=== PATIENT | female | born 1955 | race Caucasian/White ===

== ENCOUNTER → 2017-08-14 | Emergency (ER) | payer OTHER ==
[~2017-08-14] VITALS: Ht 157.5 cm; Wt 88.9 kg
[~2017-08-14] MED LIST: ASPIR 8181 MG; CALCIUM500 M1 PO; FORTAMET1000 MG PO; GLIPIZIDE5 MG PO; LISINOPRIL5 MG; METFORMIN HCL1000 MG PO; NEURONTIN300 MG PO; OMEPRAZOLE20 MG PO; PERCOCET 5-3251 EACH PO; SYNTHROID25 MCG; VITAMIN B122500 MCG PO; VITAMIN D400 UNIT PO
--- NOTE | 2017-08-14 19:31 | EKG ---
[facility] [address] [facility] [place] [address] Signed Poor data quality, interpretation may be adversely affected Normal sinus rhythm Abnormal ECG No previous ECGs available Confirmed by ANDREI SEO MD ([id number]) on 08/14/2017 7:31:15 PM Electronically Signed By: ANDREI SEO MD 08/14/171930 PATIENT NAME: LORENA SHEA Electrocardiogram DATE OF : 57 PHYSICIAN: ANDREI SEO MD REPORT #: [id number] REPORT IS CONFIDENTIAL AND NOT TO BE RELEASED WITHOUT AUTHORIZATION
== END ==
LOC: ED 17:49
DX: R07.2 Precordial pain (principal); R10.9 Unspecified abdominal pain; I10 Essential (primary) hypertension; E11.9 Type 2 diabetes mellitus without complications; Z88.6 Allergy status to analgesic agent; Z79.899 Other long term (current) drug therapy; Z79.84 Long term (current) use of oral hypoglycemic drugs
CPT/HCPCS: 71020; 76705; 80053; 83690; 84484; 85025; 93005; 93010; 96374; 99284; J2405

== ENCOUNTER 2017-12-15 06:59 | Day surgery (SDC) | payer OTHER ==
[~2017-12-15] VITALS: Ht 157.5 cm; Wt 85.7 kg
[~2017-12-15 06:59] MED LIST changes: +RANITIDINE HCL150 MG PO; +SIMETHICONE80 MG PO; -SYNTHROID25 MCG; +SYNTHROID25 MCG PO
--- NOTE | 2017-12-15 10:37 | NUR ---
12/15/17 1037 Bella Jessica PT IN AT 0846, REPORT FROM AMMON, PT VITALS STABLE.
--- NOTE | 2017-12-16 13:58 | OR ---
[facility] [address] [place], [place] [address] Signed DATE OF OPERATION: 12/15/2017 SURGEON: Nawaf Haddad MD PREOPERATIVE DIAGNOSES: 1. Hiatal hernia. 2. Gastroesophageal reflux disease. 3. Screening. 4. Constipation. POSTOPERATIVE DIAGNOSES: 1. Mild distal gastritis. 2. Moderate quezada diverticulosis. PROCEDURES: 1. EGD with CLOtest and biopsies of the antrum. 2. Colonoscopy without biopsy. ESTIMATED BLOOD LOSS: None. INDICATIONS: Kita is a 62-year-old female, who was asked to see me for upper and lower endoscopy. She has no lower GI complaints. She has never had a previous colonoscopy. There is no family history of colon cancer or polyps. She describes a hiatal hernia and acid reflux starting around 2009. She thinks the omeprazole helps, but does not completely alleviated her symptoms. She had a CT scan of her chest done and apparently there was a left pulmonary nodule. She is going to [facility] in December 2017 and have that nodule looked at. In the meantime, she plans on seeing a punch molder over the [facility]. In my office, I gave her pamphlets on both upper and lower endoscopy. We looked at those together along with the risks including, but not limited to, gas bloating, crampy abdominal pain, bleeding, perforation, requiring surgery, and missed diagnosis. We also discussed the need for IV conscious sedation. She had expressed understanding and wished to proceed. PROCEDURE NOTE: Kita was taken into our endoscopy suite and placed in the supine semi-recumbent position. The posterior oropharynx was anesthetized with Hurricaine spray. A bite block was utilized for the case. She was given divided doses of 7 mg of Versed and 150 mcg of fentanyl to cover both cases. The adult gastroscope was introduced and advanced Electronically Signed By: NAWAF HADDAD MD 12/16/17 6810 PATIENT NAME: KITA SHEA OPERATIVE REPORT DATE OF : 57 PHYSICIAN: NAWAF HADDAD MD REPORT #: [id number] REPORT IS CONFIDENTIAL AND NOT TO BE RELEASED WITHOUT AUTHORIZATION [facility] [address] [place], [place] [address] [address] out into the third portion of the duodenum under direct visualization of camera without difficulty. The duodenum and pyloric channel were unremarkable. She had very minimal erythema in the distal half of her stomach. We took biopsies from the antrum for CLOtest as well as pathologic review. There were no ulcerations, no gastric or esophageal varices. The scope was then retroflexed and I really did not see an obvious hiatal hernia. In fact, her GE junction looks rather good. The scope was withdrawn up through the area of the GE junction, which was compliant without stricture. The Z-line remains intact. There was no Christy's mucosa. There was no distal esophagitis. The middle and upper esophagus were unremarkable. After this, the gas was suctioned out and the gastroscope removed. Kita tolerated the procedure quite well. Kita was then rotated into the left lateral decubitus position. She was maintained on IV sedation with Versed and fentanyl. A digital rectal exam was performed and this was unremarkable. The adult colonoscope was introduced and advanced all around into the cecum under direct visualization of camera without difficulty. Her prep was good. The scope was then slowly withdrawn. She has moderate diverticulosis throughout the colon. They were moderate in size, moderate in number and scattered about. We saw no polyps. Once in the rectum, the scope had been retroflexed and there was no additional pathology noted above the anal canal. After this, the gas was suctioned out and the colonoscope removed. Kita tolerated the procedure quite well. RECOMMENDATIONS: I will see Kita back in my office in 7 to 14 days to review her results. She might consider a barium swallow to evaluate for hiatal hernia and acid reflux. If she wanted to pursue surgical options, [facility] [place] [facility] would be a good place. Nawaf Haddad MD [facility]/MODL /[id number] cc: Cristina Thomas Electronically Signed By: NAWAF HADDAD MD 12/16/17 1358 PATIENT NAME: KITA SHAE OPERATIVE REPORT DATE OF : 57 PHYSICIAN: NAWAF HADDAD MD REPORT #: [id number] REPORT IS CONFIDENTIAL AND NOT TO BE RELEASED WITHOUT AUTHORIZATION
== END 2017-12-15 09:24 | disposition home or self-care (01) ==
LOC: OPS 06:59 → DS 06:59 → OPS 08:15
PROVIDERS: Colon & Rectal Surgery
PROC: 0DJD8ZZ Inspection of Lower Intestinal Tract, Via Natural or Artificial Opening Endoscopic (ICD-10-PCS; principal; 2017-12-15 08:15)
PROC: 0DB68ZX Excision of Stomach, Via Natural or Artificial Opening Endoscopic, Diagnostic (ICD-10-PCS; 2017-12-15 08:15)
DX: K57.30 Diverticulosis of large intestine without perforation or abscess without bleeding (principal); K31.9 Disease of stomach and duodenum, unspecified; K21.9 Gastro-esophageal reflux disease without esophagitis; K44.9 Diaphragmatic hernia without obstruction or gangrene; Z87.891 Personal history of nicotine dependence; Z88.5 Allergy status to narcotic agent; Z88.8 Allergy status to other drugs, medicaments and biological substances; Z98.890 Other specified postprocedural states; Z79.899 Other long term (current) drug therapy
CPT/HCPCS: 86677; 99153; G0500; J2250; J3010; J7120

== ENCOUNTER 2022-09-08 14:12 | Emergency (ER) | payer MEDICARE, OTHER ==
[~2022-09-08] VITALS: Ht 157.5 cm; Wt 85.7 kg
[~2022-09-08 14:12] MED LIST changes: +JANUVIA100 MG PO; +LIPITOR10 MG PO; +LOSARTAN POTASS25 MG PO; +TRAMADOL HCL50 MG PO
--- OUTSIDE RECORDS SUMMARY | 2022-09-08 14:14 | XMS ---
PreManage Notification: LORENA SHEA Security Seaman Events No recent Security Events currently on file CRITERIA MET - [facility] - 2 Visits in 30 Days - [facility] CARE PROVIDERS Gina Tripp FILENET ADMIN Nurse Practitioner: Family Current PHONE: Unknown Shannon has no Care Guidelines for this patient. E.Gavin VISIT COUNT (12 MO.) [address] [place] [address] Lakshmi Monzon [address] [place] [address] TOTAL 2 NOTE: Visits indicate total known visits. ED/UCC VISIT TRACKING (12 MO.) 09/08/2022 14:12 ALETHEA Campos TYPE: Emergency COMPLAINT: - BLOOD PRESSURE PROBLEM 08/25/2022 05:30 [facility]: Emergency DIAGNOSES: - Fever, unspecified - Sepsis, unspecified organism - Cellulitis of left finger - Other pancytopenia - Neutropenia, unspecified - Other specified diseases of anus and rectum - Fever presenting with conditions classified elsewhere - Unspecified injury of left wrist, hand and finger(s), initial encounter - post opp issue/ fever INPATIENT VISIT TRACKING (12 MO.) 08/25/2022 05:30 [facility] Na CHRISTIANSON TYPE: Medical Surgical DIAGNOSES: - Other pancytopenia - Neutropenia, unspecified - Fever presenting with conditions classified elsewhere - Other specified diseases of anus and rectum - Unspecified injury of left wrist, hand and finger(s), initial encounter - Sepsis, unspecified organism - Cellulitis of left finger [email or web address]
--- NOTE | 2022-09-08 20:51 | EKG ---
[facility] [address] [facility] [place] [address] Signed Normal sinus rhythm Normal ECG When compared with ECG of 09-MAY-2020 15:58, premature atrial complexes are no longer present Questionable change in QRS axis Nonspecific T wave abnormality now evident in Inferior leads T wave amplitude has decreased in Lateral leads Confirmed by MARI ARCHULETA MD ([id number]) on 09/08/2022 8:51:47 PM Electronically Signed By: MARI ARCHULETA MD 09/08/222050 PATIENT NAME: LORENA SHEA Electrocardiogram DATE OF : 57 PHYSICIAN: MARI ARCHULETA MD REPORT #: [id number] REPORT IS CONFIDENTIAL AND NOT TO BE RELEASED WITHOUT AUTHORIZATION
== END 2022-09-08 16:45 | disposition home or self-care (01) ==
LOC: ED 14:12
DX: E86.0 Dehydration (principal); D61.810 Antineoplastic chemotherapy induced pancytopenia; T45.1X5A Adverse effect of antineoplastic and immunosuppressive drugs, initial encounter; F17.200 Nicotine dependence, unspecified, uncomplicated; E11.9 Type 2 diabetes mellitus without complications; Z88.6 Allergy status to analgesic agent; Z79.899 Other long term (current) drug therapy
CPT/HCPCS: 36415; 80053; 85025; 85060; 93005; 93010; 96374; 99284-25; J7030

== ENCOUNTER 2022-12-16 10:14 | Inpatient (IN) | payer MEDICARE, OTHER ==
[~2022-12-16] VITALS: Ht 157.5 cm; Wt 72.2 kg
[~2022-12-16 10:14] MED LIST changes: +CEFDINIR300 MG PO
--- OUTSIDE RECORDS SUMMARY | 2022-12-16 10:16 | XMS ---
PreManage Notification: LORENA SHEA Security Grocery Clerk Marking Events No recent Security Events currently on file CRITERIA MET - 6 ED Visits in 6 Months - [facility] - 2 Visits in 30 Days - [facility] CARE PROVIDERS Gina Tripp HOTEL CONCIERGE Nurse Practitioner: Current PHONE: Unknown Shannon has no Care Guidelines for this patient. E.Roxanne. VISIT COUNT (12 MO.) 1 [facility] [address] TOTAL 6 NOTE: Visits indicate total known visits. ED/UCC VISIT TRACKING (12 MO.) 12/16/2022 10:15 ALETHEA Zafar [place] TYPE: Emergency COMPLAINT: - POSS REACTION TO TREATMENT, AMS 12/04/2022 13:03 ALETHEA Zafar [place] TYPE: Emergency COMPLAINT: - WEAKNESS DIAGNOSES: - Other symptoms and signs involving the musculoskeletal system - Low back pain, unspecified - Allergy status to penicillin - Urinary tract infection, site not specified - Nicotine dependence, unspecified, uncomplicated - salvage determiner (current) use of oral hypoglycemic drugs - Allergy status to analgesic agent - Weakness - Other terminal makeup operator (current) drug therapy - Type 2 diabetes mellitus without complications 11/23/2022 15:18 [facility] [place] TYPE: Emergency COMPLAINT: - WEAKNESS FOLLOWING CHEMO TX DIAGNOSES: - WEAKNESS FOLLOWING CHEMO TX [facility]22 [facility] DIAGNOSES: - Malignant neoplasm of unspecified site of right female breast - Dizziness and giddiness - Neutropenia, unspecified - Melena - Anemia, unspecified - brought by cancer center - Weakness 09/08/2022 14:12 ALETHEA Campos TYPE: Emergency COMPLAINT: - BLOOD PRESSURE PROBLEM DIAGNOSES: - Adverse effect of antineoplastic and immunosuppressive drugs, initial encounter - Allergy status to analgesic agent - Type 2 diabetes mellitus without complications - Other terminal makeup operator (current) drug therapy - Antineoplastic chemotherapy induced pancytopenia - Dehydration - Nicotine dependence, unspecified, uncomplicated [facility] DIAGNOSES: - Neutropenia, unspecified - Other specified diseases of anus and rectum - Fever presenting with conditions classified elsewhere - Unspecified injury of left wrist, hand and finger(s), initial encounter - post opp issue/ fever - Fever, unspecified - Sepsis, unspecified organism - Cellulitis of left finger - Other pancytopenia INPATIENT VISIT TRACKING (12 MO.) 08/[facility]2022 [facility]: Medical Surgical DIAGNOSES: - Other specified diseases of anus and rectum - Unspecified injury of left wrist, hand and finger(s), initial encounter - Sepsis, unspecified organism - Cellulitis of left finger - Other pancytopenia - Neutropenia, unspecified - Fever presenting with conditions classified elsewhere [id number]
[2022-12-16] MEDS ORDERED: METFORMIN HCL500 M1 PO (13:53)
--- NOTE | 2022-12-16 14:15 | NUR ---
PT ARRIVED TO ROOM 123 VIA STRETCHER. PT WAS ABLE TO MOVE SELF TO THE BED. DISCUSSED USE OF CALL LIGHT, IN REACH. BED ALARM ON.
[2022-12-16] MEDS ORDERED: PREDNISONE5 MG PO (14:57)
[2022-12-16] MEDS ORDERED: ONDANSETRON ODT8 MG PO (14:57)
[2022-12-16] MEDS ORDERED: LEVOTHYROXINE100 MCG PO (14:58)
[2022-12-16] MEDS ORDERED: ATORVASTATIN CA20 MG PO (14:59)
--- NOTE | 2022-12-16 15:05 | NUR ---
DURING ASSESSMENT PT IS ABLE TO SAY "YES" WHEN ASKED IF SHE KNOWS WHERE SHE IS, BUT UNABLE TO STATE WHERE. WHEN ASKING QUESTIONS PT REPLIES "OKAY". LIDOCAINE PATCH APPLIED TO LOWER (PER EMAR). PT WAS ABLE TO VERBILZE HER BACK WAS HURTING. SKIN ASSESSMENT COMPLETE WITH KLARISSA FLOYD. SKIN IS INTACT WITH NO SIGNS OF SKIN BREAKDOWN. PT WAS NAUSEOUS BUT NO EMESIS. SISTER AT BEDSIDE. CALL LIGHT WITHIN REACH. BED ALARM ON FOR SAFETY.
--- NOTE | 2022-12-16 16:52 | NUR ---
PT COMPLAINING OF BACK PAIN. WARM PACK PROVIDED, PT SAYS "FEELS MUCH BETTER". PT IS ABLE TO VERBALIZE WHERE SHE IS AT AND KNOWS THE PRESIDENT. PT RESTING IN BED, CALL LIGHT WITHIN REACH, BED ALARM ON
--- NOTE | 2022-12-16 18:07 | NUR ---
PT CONTINUES TO COMPLAIN ABOUT BACK PAIN. LIDOCAIN PATCH REMAINS IN PLACE. HEAT PAD IN PLACE. PRN PAIN MEDICATION ADMINISTERED (PER EMAR). ROOMMATE AT BEDSIDE. CALL LIGHT URIELITHIN REACH. BED ALARM ON.
--- NOTE | 2022-12-16 19:05 | NUR ---
RECEIVED REPORT FROM DELMIS RN. PT RESTING IN BED, REPORTS NEED TO USE BC. THIS RN AND DELMIS RN ASSISTED PT W/2PA TO BC, URINE VOID RECORDED, MARQUITA CARE PERFORMED, NEW DEPENDS IN PLACE. PT NOW BACK IN BED, CALL LIGHT WITHIN REACH, NO FURTHER NEEDS AT THIS TIME.
--- NOTE | 2022-12-16 20:30 | NUR ---
IN PT ROOM FOR RELATIONSHIP CONSULTANT, VS, I/O'S, AND ASSESSMENT. PT IS RESTING IN BED ALERT AND ORIENTED TO ALL BUT DATE/TIME. PT REPORTS 10/10 PAIN IN BACK, LIDOCAINE PATCH IN PLACE AT THIS TIME, BOOSTED IN BED. MD CALLED REGARDING PAIN, NEW ORDERS IN PLACE. PORT IS ACCESSED, BRISK BLOOD RETURN, FLUSHES W/EASE, NO SIGNS OF REDNESS/OR REPORTS OF PAIN. CONTINUOUS FLUIDS INFUSING DIRECTED. PRN MORPHINE GIVEN D/T BACK PAIN (SEE EMAR). LUNG SOUNDS ARE DIM THROUGHOUT, PT DOES NOT FOLLOW DIRECTIONS TO TAKE DEEP BREATHS. PULSES PRESENT THROUGHOUT, BOWEL TONES ACTIVE X4. PT REPORTS NO NAUSEA, DIZZINESS, N/T, SOB AT THIS TIME. SKIN IS PINK/WARM/DRY, NO SIGNS OF BREAKDOWN AT THIS TIME. CALL LIGHT WITHIN REACH, BED ALARM ON, NO FURTHER NEEDS AT THIS TIME.
--- NOTE | 2022-12-16 21:20 | NUR ---
PT RESTING IN BED A&O X4. PT REPORTS PAIN IS 2/10 AT THIS TIME, NO NEED FOR PRN MEDS PER PT D/T TOLERABLE. PT REPORTS NO NAUSEA, N/T, DIZZINESS, SOB AT THIS TIME. IV SITE WNL, IV ABX INFUSING AT THIS TIME. LUNG SOUNDS ARE CLEAR THROUGHOUT, PULSES PRESENT THROUGHOUT, BOWEL TONES ARE HYPOACTIVE X4. VSS. PT USED IS X3 W/THIS RN IN ROOM REACHING 2200. KERLEX AND JUANI WRAP REWRAPPED OVER WOUND, REDNESS HAS RECEEDED FROM MARKED LINE, ALLEVYNS ARE C/D/I. LEG IS ELEVATED ON PILLOW AT THIS TIME. CALL LIGHT WITHIN REACH, NO FURTHER NEEDS AT THIS TIME. ICE WATER PROVIDED.
--- NOTE | 2022-12-16 22:10 | NUR ---
PT RESTING W/EYES CLOSED. RESPIRATIONS ARE EVEN AND UNLABORED, NO SIGNS OF DISTRESS. CALL LIGHT WITHIN REACH. IV FLUIDS INFUSING DIRECTED. BED ALARM ON FOR SAFETY.
--- NOTE | 2022-12-16 23:45 | NUR ---
PT LAYING ON BACK W/EYES CLOSED. RESPIRATIONS ARE EVEN AND UNLABORED, NO SIGNS OF DISTRESS. IV FLUIDS INFUSING DIRECTED, CALL LIGHT WITHIN REACH, BED ALARM ON FOR SAFETY.
--- NOTE | 2022-12-17 02:10 | NUR ---
IN PT ROOM FOR VS. PT REPORTS NO PAIN AT THIS TIME AND IS ORIENTED TO ALL BUT DATE/TIME. UPPER EXTR. TREMORS STILL ACTIVE, PT STATES SHE IS NOT SURE WHERE THEY CAME FROM, NOT PRESENT DURING SLEEP. NO ACUTE CHANGES FROM PREVIOUS ASSESSMENT. PT REPORTS NO NAUSEA, DIZZINESS, SOB, N/T AT THIS TIME. PORT IS WNL, IV FLUIDS INFUSING DIRECTED. CALL LIGHT WITHIN REACH, BED ALARM ON, NO FURTHER NEEDS AT THIS TIME.
--- NOTE | 2022-12-17 03:55 | NUR ---
IN PT ROOM D/T PT REPORT BACK PAIN, HEAT PACK PROVIDED AND PT STATES INSTANT RELIEF AT THIS TIME. TV REMOTE PROVIDED TO PT. CALL LIGHT WITHIN REACH, PT REPORTS NO FURTHER NEEDS AT THIS TIME.
--- NOTE | 2022-12-17 05:35 | NUR ---
PT IN BED RESTING WATCHING TV. PT REPORTS NO PAIN, N/T, DIZZINESS, SOB AT THIS TIME. PT REPORTS MILD NAUSEA, RAISED HOB AND PT STATES SHE DOES NOT FEEL NAUSEOUS ANYMORE AT THIS TIME, PT DECLINED NEED FOR ZOFRAN. LAB IN ROOM, BLOOD DRAW VIA PORT PER PROTOCAL. CALL LIGHT WITHIN REACH, NO FURTHER NEEDS AT THIS TIME.
--- NOTE | 2022-12-17 06:50 | NUR ---
IN PT ROOM FOR REDRAW OF LABS VIA PORT. PORT SITE WNL, BRISK BLOOD RETURN. REDRAW PER MD ORDER D/T LOW CRITICAL MAG VALUED LAB. PROTOCAL FOLLOWED W/LAB DRAW AND FLUSH. PT REPORTS NO PAIN AT THIS TIME. CALL LIGHT WITHIN REACH, SALINE LOCKED, NO FURTHER NEEDS AT THIS TIME. BED ALARM ON FOR SAFETY.
--- NOTE | 2022-12-17 07:18 | NUR ---
REPORT RECEIVED FROM KLARISSA PEARSON. PT RESTING IN BED ON BACK, SEMI KANG POSITION. PT AWAKE AND ALERT AND TELLING STORIES FROM HER PAST CHEMO TREATMENTS. PT DENIES PAIN AND NAUSEA AT THIS TIME. HEAD OF BED AT 15 DEGREES. PT DENIES ADDITIONAL REQUESTS OR COMPLAINTS. CALL LIGHT WITHIN REACH. BED RAILS UP.
--- NOTE | 2022-12-17 07:32 | NUR ---
MORNING ASSESSMENT AND MEDICATION DUE. PT AWAKE AND ALERT, WATCHING TV. PT TELLING LONG STORIES ABOUT HER EXPERIENCES WITH CHEMOTHERAPY. STAND BY ASSIST WITH FWW UP TO CHAIR. PORT FLUSHED, BRISK BLOOD RETURN NOTED. PORT HEAPRIN LOCKED PER PROTOCOL. PT DENIES PAIN AND NAUSEA AT THIS TIME. BLOOD SUGAR TAKEN AND FOUND TO BE 69. 4 OZ ORANGE JUCIE AND JELLO PROVIDED PER PT REQUEST. PT TAKES ONE SIP OF ORANGE JUICE AND ONE BITE OF JELLO AND REPORTS "IT'S WAY TO SWEET!" PT BEGINS DRY HEAVING. PT ALSO REPORTS DIZZINESS AT TIMES. HEAPRIN REMOVED FROM PORT A CATH LINE. ZOFRAN GIVEN. MAGNEISUM INFUSION STARTED. BLOOD SUGAR REASSESSED AND FOUND TO BE 83. PT IS ABLE TO FINISH HER ORANGE JUICE BUT STATES SHE DOES NOT WANT ADDITIONAL JUICE BUT AGREES TO CRANBERRY JUICE, 4 OZ PROVIDED. PT ALERAT AND OREINTED TO ALL BUT EXACT TIME AND YEAR. PT COOPEARTIVE, FOLLOWS DIRECTIONS AND IS INTERACTING WITH CARES APPROPRIATLY. PT FORGETFUL AT TIMES BUT NO LONGER APPEARS CONFUSED. PT RECALLS EVENTS APPROPIRATLY. LUNG SOUNDS CLEAR. HEART TONES REGULAR WITH OCCATIONAL MISSED BEAT HEARD. ABDOMEN SOFT AND NON TENDER. BOWEL TONES ACTIVE. PT REMAINS UP TO CHAIR. BLOOD SUGAR REASSESED, NOW 97. PT NOW REPORTS NAUSEA AND DIZZINESS HAVE RESOLVED. NO ADDITIONAL NEEDS AT THIS TIME. CALL LIGHT WITHIN REACH. PT DEMONSTRATES USE OF CALL LIGHT. BREAKFAST DELIVERED TO PT. PT FEEDING SELF BREAKFAST.
[2022-12-17] MEDS ORDERED: FAMOTIDINE20 MG PO (09:08)
[2022-12-17] MEDS ORDERED: OZEMPIC1 MG/0.71 SUB-Q (09:09)
--- NOTE | 2022-12-17 09:16 | NUR ---
MED REC COMPLETE
--- NOTE | 2022-12-17 09:35 | NUR ---
THIS RN TO ROOM TO CHECK ON PT. PT REMAINS UP TO CHAIR. PT REPORTS 2/10 LOWER BACK PAIN AND REPORTS ABDOMINAL DISCOMFORT. NOTED THAT PT RECENTLY HAD A LARGE SEMI LIQUID SOFT BROWN BOWEL MOVEMENT. PT REPORTS HEART BURN. MESSAGE SENT TO MD REQUESTING PRN MEDICATION. IV FLUIDS STARTED. PT DENIES ADDITONAL REQUSTS OR COMPLAINTS. CALL LIGHT WITHIN REACH.
--- NOTE | 2022-12-17 10:30 | NUR ---
Attempted to see pt, she is working with PT.
--- NOTE | 2022-12-17 10:32 | NUR ---
THIS RN TO ROOM TO CHECK ON PT. PT FINISHING WORKING WITH OCCUPATIONAL THEARPY. PT REPORTS 8/10 LOWER BACK PAIN. LIDOCANE PATCH APPLIED. PT BACK TOB BED WITH 1 PERSON ASSIST AND FWW. WARM BLANKETS PROVIDED. NO ADDIITONAL REQUESTS OR COMPLAINTS. CALL LIGHT WITHIN REACH. BED RAILS UP.
--- NOTE | 2022-12-17 10:49 | NUR ---
NURSE GOT PATIENT UP TO THE CHAIR THIS MORNING. CHANGED HER BED LINENS. AFTER SHE WAS DONE WITH BREAKFAST SHE NEEDED TO USE THE BEDSIDE COMMODE. SHE TRANFERED FINE BACK TO HER CHAIR.
--- NOTE | 2022-12-17 10:50 | NUR ---
Spoke with pt and she lives in [place]. She has a roommate and he is not her cg. He is a bulk truck driver and is gone. She has DME, she is concerned as she has had falls at home. Sister, Nannette, lives in [facility] and assist her with transport and other needs. Nannette [phone]. Pt is agreeable to SNF placement for short term rehab. She would like to be able to go home. Chart faxed to [facility]. I called and spoke with her sister and she wants to help, states she does not know where to start. She would like pt to have rehab. Let her know chart has been sent to [facility]. I also suggested they begin by completing POA papers. She is calling her other siblings to check for other help.
--- NOTE | 2022-12-17 11:28 | NUR ---
Call from azucena from [facility] and they wouldl like chart faxed to their Dr. Dr. Roy, pt is under their care.
--- NOTE | 2022-12-17 11:51 | NUR ---
THIS RN TO ROOM WITH MD FOR ROUNDS. PT TELLING STORIES AND ANSWERING QUESTIONS APPROPRATLY. PT EPORTS 8 LOWER BACK PAIN AND STATES "BUT IT'S JUST IN THAT ONE CORNDER. LIDOCANE PATCH FOUND ROLLED UP IN BED. REAPPLIED. PT UP TO CHAIR WITH 1 PERSON ASSIST AND FWW. PT DENIES NAUSEA. LUNCH DELIVERED TO PT. PT DENIES ADDITIONAL NEEDS AT THIS TIME. CALL LIGHT WITHIN REACH.
--- NOTE | 2022-12-17 12:26 | NUR ---
FR RUSSELL WITH CHECK WITH M/S RN TO SEE IF PT WOULD LIKE VISIT
--- NOTE | 2022-12-17 12:30 | NUR ---
PT CALL LIGHT ON PT REPORTS NASUEA WITH FOOD FOR LUNCH. CONSULTED AND STATES TO GIVE ZOFRAN EARLY. NEW ORDERS FOR PANTOPRAZOLE ALSO PLACED. SEE MAR FOR MEDICATION GIVEN. FOOD TRAY REMOVED. PT DENIES ADDITIONAL FOOD. NAUSEA QUICKLY RESOLVES AFTER ZOFRAN ADMINISTRATION. PT CRYING RELATED TO 8/10 BACK PAIN. SEE MAR FOR MEDICATION GIVEN. 1 PERSON ASSIST WITH FWW UP TO BEDSIDE COMODE. PT VOIDS WITHOUT ISSUE. MARQUITA CARE DONE. STAND BY ASSIST WITH FWW BACK TO BED. PT POSITIONED FOR COMFORT WITH HEAD OF BED AT 21 DEGREES. NO ADDITIONAL REQUESTS OR COMPLAINTS. CALL LIGHT WITHIN REACH. BED RAILS UP.
--- NOTE | 2022-12-17 13:27 | NUR ---
AFTERNOON ASSESSMENT AND MEDICATION DUE. PT RESTING IN BED IN SUPINE POSITION. PT REPORTS BACK PAIN "IS BETTER: NOW AT 3/10. PT DENIES PAIN WITH PRESSURE TO FLANKS. PT DENIES NAUSEA. PT ORIENTED TO ALL BUT EXACT TIME AT THIS TIME. PT STATES "I JUST CAN'T SEE WITHOUT MY GLASSES." PT HAS TROUBLE FINDING EXACT WORD SHE WANTS AT TIMES. PT IS ABLE TO TALK AROUND WORDS UNTIL SHE REMEMBERS WHAT SHE WANTS TO SAY. LUNG SOUNDS CLEAR. HEART TONES REGULAR. ABDOMEN SOFT AND NON TENDER, BOWEL TONES ACTIVE. PT ASSISTED WITH REPOSITIONING TO RIGHT SIDE, SUPPORTED WITH PILLOWS. PT REPORTS SHE IS MORE COMFROTABLE ON THIS SIDE AND WANTS TO TAKE A NAP. NO ADDITIONAL NEEDS AT THIS TIME. CALL LIGHT WIHTIN REACH. BED RAILS UP.
--- NOTE | 2022-12-17 14:28 | NUR ---
THIS RN TO ROOM TO CHECK ON PT. PT RESTING WITH EYES CLOSED, RESPIRATIONS EVEN AND UNLABORED. HEAD OF BED AT 20 DEGREES. PT RESTING ON RIGHT SIDE. BED RAILS UP. CALL LIGHT WITHIN REACH. PT ALLOWED TO REST.
--- NOTE | 2022-12-17 14:30 | NUR ---
WHEN I WENT BY AND CHECKED ON PATIENT. CURTAIN WAS OPEN. PATIENT WAS SLEEPING.
--- NOTE | 2022-12-17 15:19 | NUR ---
THIS RN TO ROOM TO CHECK ON PT. PT RESTING IN BED WITH PILLOW UNDER RIGHT SIDE. PT REPORTS 8/10 BACK PAIN AND REQUESTS PAIN MEDICAITON AND REPOSITIONING. PT REPOSITIONED TO RIGHT SIDE, WILL PILLOW UNDER LEFT SIDE. PT REPORTS THIS HELPS HER PAIN. SEE MAR FOR MEDICATION GIVEN. PT DENIES NAUSEA. NO ADDITIONAL REQUESTS OR COMPLAINTS. CALL LIGHT WITHIN REACH. BED RAILS UP.
--- NOTE | 2022-12-17 15:56 | NUR ---
PT HERE FOR IFRAH AND HYPERCALCEMIA. PT UP WITH 1 PERSON ASSIST AND FWW TO CHAIR AND WITH PHYSICAL THERAPY THIS SHIFT. PT HAS VERY POOR APPITITE FOR 60G CARB DIET THIS SHIFT. PRN NAUSEA MEDICATION GIVEN. SHAKE CUTTER CONSULTATION PLACED. PT ADVANCED TO REGULAR DIET, CONTINUES TO HAVE MINIMAL APPITITE. HYPOGLYCEMIA NOTED THIS MORNING. PT CHRISTOS TO DRINK JUICE BUT NEEDS NAUSEA MEDICATIONS AND REPORTS FOOD/JUICE IS "TOO SWEET." PT REPROTS FREQUENT BACK PAIN WITH PRN PAIN MEDICATION GIVEN AND LIDOCANE PATCH APPLIED. IV HYDRATION STARTED WITH POTASSIUM, PHOSPHATE AND MAGNESIUM RIDERS GIVEN. PT OREITNED TO ALL THIS SHIFT ALTHOUGH FORGETFUL AT TIMES. PORT A CATH REMAINS WNL WITH BRISK BLOOD RETURN NOTED. PT VOIDING QUANITITY SUFFICIENT. PT USES CALL LIGHT INTERMITTANTLY, PURPOSFUL HOURLY ROUDNING PERFORMED.
--- NOTE | 2022-12-17 16:16 | NUR ---
HOURLY ROUNDING: PT RESTING IN ON RIGHT SIDE IN BED WITH EYES CLOSED. SUPPORTED WITH PILLOWS, HEAD OF BED AT 15 DEGREES. RESPIRATIONS EVEN AND UNLABORED. BED RAILS UP. CALL LIGHT WITHIN REACH. PT ALLOWED TO REST.
--- NOTE | 2022-12-17 16:45 | NUR ---
Notified by DARION at [facility] they are reviewing the chart and if they accept they could take her on Tuesday. She is not accepted at this time. Let him know I called her Oncologist and pt has not had chemo since last juliana. They do not plan on resuming until after she would dc from the SNF. I spoke with Dr. Valentin. Pt wishes to remain a full code.
--- NOTE | 2022-12-17 17:12 | NUR ---
DINNER DELIVERED TO PT. STAND BY ASSIST WITH FWW UP TO RESTROOM. PT VOIDS 200ML CLEAR YELLOW URINE. PT PERFORMS SELF MARQUITA CARE. STAND BY ASSIST UP TO CHAIR. PT TAKES 3 BITES OF APPLESAUCE AND ONE BITE OF GRILED CHEESE AND STARTS BECOMING NAUSEATED AGAIN. EMESIS BAG PROVIDED. PT REPORTS 0/10 BACK PAIN UNTIL UP TO CHAIR WHEN SHE STATES HER BACK PAIN IS BACK TO A 8/10. MD CONSULTED AND ORDERS FOR 12.5 OF PHENEGRAN GIVEN. ORDERS ENTERED, REPEAT BACK PERFORMED. PT BACK TO BED WITH STAND BY ASSIST AND FWW. PT POSISTIONED AGAIN ON RIGHT SIDE WITH PILLOW FOR COMFORT UNDER LEFT SIDE. WARM BLANKET PROVIDED AND BY THIS TIME PT REPORTS PAIN AND NAUSEA HAVE RESOLVED. PT DENIES NEED FOR PAIN OR NAUSEA MEDICATION. ICE WATER REFILLED. NO ADDITIONAL NEW ORDERS FROM MD. PT DENIES ADDITIONAL REQUESTS OR COMPLAINTS. CALL LIGHT WITHIN REACH. BED RAILS UP.
--- NOTE | 2022-12-17 18:47 | NUR ---
THIS RN TO ROOM TO CHECK ON PT. PUMP ALARMING, IV FLUID BAG EMPTY. NEW BAG HUNG WITH NEW TUBING. PT REQUESTS ASSISTANCE UP TO RESTROOM. STAND BY ASSIST WITH FWW UP TO RESTROOM. PT VOIDS CLEAR YELLOW URINE. MARQUITA CARE DONE. PTS OWN UNDERWARE PLACED PER PT REQUEST. STAND BY ASSIST WITH FWW BACK TO BED. PT REPORTS 0/10 LOWER BACK PAIN, PT REMAINS ON THE RIGHT SIDE, SUPPORTED WITH PILLOWS FOR HER COMFORT. LIDOCANE PATCH FOUND BALLED UP IN BED, REMOVED OFFICIALLY. PTS ROOMMATE AT BEDSIDE, PT VISITING WITH HER ROOMMATE WHO STATES "SHE IS MUCH BETTER TODAY." PT DENEIS ADDITIONAL REQUESTS OR COMPLAINTS. ICE WATER REFILLED. CALL LIGHT WITHIN REACH. BED RAILS UP.
--- NOTE | 2022-12-17 19:10 | NUR ---
RECEIVED REPORT FROM CHAPIN CYR. PT RESTING IN BED WATCHING TV W/ROOMMATE AT BEDSIDE. CONTINUOUS IV FLUIDS INFUSING DIRECTED INTO PORT, WNL. CALL LIGHT WITHIN REACH, NO FURTHER NEEDS AT THIS TIME PER PT.
--- NOTE | 2022-12-17 20:20 | NUR ---
IN PT ROOM FOR FILLER SIFTER MACHINE AND ASSESSMENT. PT REPORTS NO PAIN, NAUSEA, N/T, DIZZINESS, SOB AT THIS TIME. PT ON RA AND LUNGS CLEAR THROUGHOUT. PULSES PRESENT THROUGHOUT, 1+ EDEMA IN BLE FEET. PT IS A&O TO ALL BUT DATE/TIME. BOWEL TONES ARE ACTIVE X4 W/NO TENDERNESS REPORTED. PORT IS WNL, NO REDNESS NOTED AND BRISK BLOOD RETURN. 1 UNIT OF INSULIN GIVEN FOR BS OF 158, PT TOLERATED WELL. THIS RN ASSISTED PT TO RESTROOM SA W/FWW, URINE VOID RECORDED. PT NOW BACK IN BED RESTING ON RT SIDE W/PILLOW SUPPORT. CALL LIGHT WITHIN REACH, NO FURTHER NEEDS AT THIS TIME.
--- NOTE | 2022-12-17 23:16 | NUR ---
PT RESTING IN BED WATCHING TV. REPORTS NO PAIN/NAUSEA AT THIS TIME AND COMFORTABLE. CONTINUOUS FLUIDS INFUSING DIRECTED, PORT WNL. CALL LIGHT WITHIN REACH, NO FURTHER NEEDS AT THIS TIME.
--- NOTE | 2022-12-18 00:21 | NUR ---
PT RESTING ON RT SIDE W/EYES CLOSED. RESPIRATIONS ARE EVEN AND UNLABORED, NO SIGNS OF DISTRESS. CALL LIGHT WITHIN REACH. CONTINUOUS FLUIDS INFUSING DIRECTED, PORT WNL.
--- NOTE | 2022-12-18 02:13 | NUR ---
PT RESTING W/EYES CLOSED. RESPIRATIONS ARE EVEN AND UNLABORED, NO SIGNS OF DISTRESS. CALL LIGHT WITHIN REACH. IV FLUIDS INFUSING DIRECTED. PT APPEARS COMFORTABLE AT THIS TIME.
--- NOTE | 2022-12-18 02:55 | NUR ---
IN PT ROOM FOR NEW BAG OF CONTINUOUS FLUIDS. PORT SITE WNL, NO REDNESS NOTED OR PAIN AT SITE PER PT. BOOSTED PT IN BED, PT STARTED DRY HEAVING AT THIS TIME W/EMESIS BAG IN HAND. PT REFUSED PRN NAUSEA MED AT THIS TIME. ASSISTED PT TO BATHROOM W/STANDBY ASSIST W/FWW. SM BM, GAS, AND 200 ML OUTPUT RECORDED. PT GAIT SLOW BUT STEADY. SKIN ON BACKSIDE IS INTACT, NO SIGNS OF SKIN BREAKDOWN AT THIS TIME. PT NOW BACK IN BED ON RT SIDE W/SUPPORT PILLOW BEHIND BACK. NO ACUTE CHANGES FROM PREVIOUS ASSESSMENT. +1 EDEMA REMAINS IN FEET BILAT. PT REPORTS NO PAIN, NAUSEA, N/T, DIZZINESS, SOB AT THIS TIME. CALL LIGHT WITHIN REACH, NO FURTHER NEEDS AT THIS TIME.
--- NOTE | 2022-12-18 05:00 | NUR ---
IN PT ROOM FOR BEEPING PUMP, REPLUGGED IN IV PUMP D/T LOW BATTERY. PT REPORTS NO PAIN, NAUSEA AT THIS TIME. CONTINUOUS FLUIDS INFUSING DIRECTED, PORT SITE WNL. CALL LIGHT WITHIN REACH, NO FURTHER NEEDS AT THIS TIME.
--- NOTE | 2022-12-18 06:00 | NUR ---
IN PT ROOM FOR BLOOD DRAW FROM PORT. ASSISTED PT SA W/FWW TO BATHROOM, UNMEASURABLE URINE VOID AND 1 SM, SOFT BM. PT RESTING BACK IN BED, PORT BLOOD DRAW PER PROTOCAL, PT TOLERATED WELL, FLUSHED W/20 ML, CONTINUOUS FLUIDS RESUMED. PT REPORTS NO PAIN, NAUSEA AT THIS TIME. ASSISTED PT TO RESTING ON RT SIDE PER REQUEST. CALL LIGHT WITHIN REACH, NO FURTHER NEEDS AT THIS TIME.
--- NOTE | 2022-12-18 06:40 | NUR ---
IN PT ROOM D/T LAB RESULTS RECEIVED. BLOOD DRAW INDICATES BLOOD GLUCOSE OF 77. PROVIDED CRANBERRY JUICE, ENCOURAGED PT ORAL INTAKE TO ASSIST IN LOW BLOOD GLUCOSE LEVEL, PT STATES VERBAL UNDERSTANDING AND AGREES TO PLAN OF CARE. CALL LIGHT WITHIN REACH. NO FURTHER NEEDS.
--- NOTE | 2022-12-18 07:23 | NUR ---
REPORT RECEIVED FROM KLARISSA PEARSON. PT RESTING IN BED WITH EYES CLOSED ON RIGHT SIDE, SUPPORTED WITH PILLOWS. RESPIRATIONS EVEN AND UNLABORED. BED RAILS UP. CALL LIGHT WITHIN REACH. PT ALLOWED TO REST.
--- NOTE | 2022-12-18 08:01 | NUR ---
MORNING ASSESSMENT AND MEDICATION DUE. PT RESTING IN BED ON RIGHT SIDE. PT REPORTS HEARTBURN. PT REPORTS NEED TO GET UP TO THE RESTROOM. STAND BY ASSIST WITH FWW UP TO RESTROOM. PT PASSES LARGE AMOUNTS OF GAS AND VOIDS WITHOUT ISSUE. PT DENIES CONSTIPATION AND DECLINES BOWEL MEDICATIONS. PT RPEORTS 0/10 LOWER BACK PAIN AT THIS TIME. LIDOCANE PATCH APPLIED PROPHLACTICALLY WITH OPSITE PLACED OVER PATCH TO HELP KEEP PATCH IN PLACE TODAY. PT ALERT AND OREINTED TO ALL. PT INTERACTING APPROPRIALTY AND ANSWERING QUESTIONS APPROPRIATLY. PT FORGETFUL AT TIMES. PT FOLLOWS DIRECTIONS AND IS INTERATING WITH CARES. NO TREMORS NOTED AT THIS TIME IN HANDS. LUNG SOUNDS CLEAR. HEART TONES REGULAR. +1 EDEMA CONTINUES IN FEET. ABDOMEN SOFT AND NON TENDER. BOWEL TONES HYPOACTIVE. BREAKFAST DELIVERE TO PT AND PT IMMIDALTY BECOMES NAUSOUS AND REQUESTS NAUSEA MEDICAITONS. BREAKFAST REMOVED AND PT RECOVERS. NO MEDICATION NEEDED. MEDICATIONS GIVEN (SEE MAR). MD CONSULTED REGARDING HEARTBURN. NEW MEDICATIONS ORDERED. NO ADDITONAL REQUESTS OR COMPLAINTS. PT AGREES TO TIME UP TO CHAIR AT THIS TIME. TOELRATING WELL. CALL LIGHT WITHIN REACH. WARM BLANEKTS PROVIDED.
--- NOTE | 2022-12-18 09:30 | NUR ---
PT CALL LIGHT ON. PT REQUESTS ADDITIONAL ICE WATER, PROVIDED. BROTH PROVIDED WELL. PT CONTINUES TO DECLINE ANY FOOD OR DRINK. PT COTNINUES TO DENY PAIN AND NAUSEA. PHYSICAL THERAPY TO BEDSIDE TO WORK WITH PT. PT DENIES ADDITIONAL REQUESTS OR COMPLAINTS. CALL LIGHT WITHIN REACH.
--- NOTE | 2022-12-18 10:40 | NUR ---
THIS RN TO BEDSIDE TO CHECK ON PT. PT REMAINS UP TO CHAIR. PT STATES SHE WAS ABLE TO WALK "ALL THE WAY DOWN THE HALLWAY" TODAY. PT CONTINUES TO DENY BACK PAIN AT THIS TIME. PT DENIES NAUSEA. PTS SISTER ARRIVED TO BEDSIDE TO VISIT WITH PT. NO ADDITIONAL REQUESTS OR COMPLAINTS. CALL LIGHT WITHIN REACH.
--- NOTE | 2022-12-18 10:50 | NUR ---
PATIENT AND I WALKED INTO THE SHOWER. PATIENT WASHED MOST OF HER BODY EXCEPT HER BACK. PUT CLEAN UNDERWEAR ON AND NEW GOWN AND SOCKS. PATIENT SET UP IN HER CHAIR.
--- NOTE | 2022-12-18 11:07 | NUR ---
PT CALL LIGHT ON. PT REPORTS SHE IS READY TO SHOWER NOW. PORT SALINE LOCKED AT THIS TIME WITH ALCOHOL CAP APPLIED. INFUSIONS PAUSED. PT REPORTS SHE HAS A "DRINK I LIKE WITH PROTEIN" AT HOME. PTS SISTER ENCORUAGED TO BRING THIS DRINK TO THE HOSPITAL FOR PT. PT UP WITH PRINT LINE SUPERVISOR TO THE SHOWER. NO ADDITIONAL NEEDS AT THIS TIME. CALL LIGHT WITHIN REACH.
--- NOTE | 2022-12-18 11:50 | NUR ---
PT FINISHED WITH SHOWER AND BACK TO CHAIR. IV FLUIDS AND K/PHOS RESTRATED. PT DENIES PAIN AND NAUSEA. PT PERFORMS SELF ORAL CARE. PTS SISTER ARRIVED WITH PROTEIN SHAKES. PT ENCOURAGED TO EAT/TRY WHATEVER SHE CAN TOLERATE. NEW IV FLUID BAG HUNG. PT DECLINES LUNCH TRAY. NO ADDITIONAL NEEDS AT THIS TIME. CALL LIGHT WITHIN REACH. SISTER AT BEDSIDE.
--- NOTE | 2022-12-18 12:32 | NUR ---
LUNCH DELIVERED TO PT. PT DECLINES LUNCH. HOWEVER PT IS SLOWING DRINKING A PREMIER PROTEIN CHOCOLATE DRINK BROUGHT IN BY HER SISTER. PT REPORTS SHE IS TOELRATING THIS DRINK WITHOUT NASUEA. PT DENIES PAIN AT THIS TIME. PT CONTINUES VISITING WITH SISTER. NO ADDITIONAL REQUESTS OR COMPLAINTS. CALL LIGHT WITHIN REACH.
--- NOTE | 2022-12-18 13:02 | NUR ---
CRITICAL LAB VALUES RECEIVED FROM WALK IN THE LAB FROM LAB DRAW ON 12/16. DR CRUZ UPDATED, NO NEW ORDERS AT THIS TIME.
--- NOTE | 2022-12-18 14:13 | NUR ---
AFTERNOON ASSESSMENT DUE. PT CALL LIGHT ON. PT REQUESTS ASSISTANCE UP TO RESTROOM. STAND BY ASSIST WITH FWW UP TO RESTROOM FROM THE BED. PT VOIDS 400ML CLEAR YELLOW URINE. MARQUITA CARE DONE BY PT. STAND BY ASSIST BACK TO BED. PT REPORTS 0/10 PAIN IN LOWER BACK STATING THE PAIN PATCH IS "REALLY WORKING." PT DENIES NAUSEA. PT ALERT AND OREINTED TO ALL, EVEN ABLE TO STATE EXACT DATE AND TIME. PT ANSWERING QUESTIONS APPROPRIATLY. HEART TONES REGULAR. LUNG SOUNDS CLEAR. PT TALKS ABOUT A TIME WHEN A "DARK SPOT" WAS FOUND ON HER LUNG WITH A CHEST X-RAY ADN SHE "ONLY HAVE HALF A LUNG." PT REPORTS "BUT I'VE NEVER HAD ANY TROUBLE WITH BREATHING. HEART TONES REGULAR. +1 PITTING EDEMA REMAINS IN BLE. PT REPORTS SHE WAS ABLE TO DRINK ALL OF HER PREMIER PROTIEN DRINK AND IS VERY PROUD OF HERSELF. PT TALKIGN ABAOUT PLAN OF CARE AND HER DESIRE TO GO TO A REHAB PROGRAM BUT "I DON'T WANT TO BE SOMEWHERE FOREVER, JUST FOR A LITTLE WHILE." PT BACK TO BED AND ON RIGHT SIDE, SUPPORTED WITH PILLOWS. HEAD OF BED AT 20 DEGREES. PT DENIES ADDITIONAL REQUESTS OR COMPLAINTS. CALL LIGHT WITHIN REACH. BED RAILS UP.
--- NOTE | 2022-12-18 15:51 | NUR ---
HOURLY ROUNDING: PT RESTING IN BED ON RIGHT SIDE WATCHING TV. PT REPORTS SHE HAD A SHORT NAP AND JUST RETURNED FROM RESTROOM. PUMP ALERMING, POTASSIUM PHOSPHATE INFUSION COMPLETE. IV FLUIDS CONTINUE. PORT REMAINS WNL. PT DENIES PAIN AND NAUSEA. NO ADDITIONAL REQUESTS OR COMPLAINTS. CALL LIGHT WITHIN REACH. BED RAILS UP.
--- NOTE | 2022-12-18 16:54 | NUR ---
MEDICATION DUE. PT TALKING WITH MILITARY TECHNOLOGY MANAGER WHILE RESTING IN BED. PT CONTINUES TO DENY PAIN AND NAUSEA. STAND BY ASSIST WITH FWW UP TO RESTROOM. PT VOIDS WITHOUT ISSUE. PT PERFORMS SELF MARQUITA CARE. INSULIN GIVEN. PERMIRE PROTEIN DRINK PROVIDED FOR DINNER PER PT REQUEST. STAND BY ASSIST BACK UP TO CHAIR. PT DENIES ADDITIONAL REQUESTS OR COMPLAINTS. CALL LIGHT WITHIN REACH.
--- NOTE | 2022-12-18 17:25 | NUR ---
PT HERE FOR IFRAH AND HYPERCALCEMIA. PT UP WITH 1 PERSON ASSIST AND FWW TO CHAIR AND WITH PHYSICAL THERAPY THIS SHIFT. PT MOVING MUCH MORE SMOOTHLY AND MUCH MORE STEADY ON FEET. PT HAS VERY POOR APPITITE FOR 60G CARB DIET THIS SHIFT. PREMIER PROTEIN DELIVERD BY PTS SISTER AND PT ABLE TO TOLEARTE DRINKING TWO OF THESE DRINKS. DENIES NASUEA THIS SHIFT BUT FOR WHEN SHE SEES OR THINKS OF FOOD. PT CONTINUES TO REPORT TASTE CHANGES. BACK PAIN MUCH IMPROVED THIS SHIFT LIDOCANE PATCH HELD IN PLACE BY OPSITE. PT TOLEARTES TIME UP TO CHAIR. IV HYDRATION CONTINUES WITH POTASSIUM PHOSPHATE AND MAGNESIUM RIDERS GIVEN. PT OREITNED TO ALL THIS SHIFT ALTHOUGH FORGETFUL AT TIMES. PORT A CATH REMAINS WNL WITH BRISK BLOOD RETURN NOTED. PT VOIDING LARGER QUANTITIES THIS EVENING, IV FLUIDS CONTINUE GIVEN PTS LOW PO INTAKE. PT USES CALL LIGHT AND MAKES NEEDS KNOWN.
--- NOTE | 2022-12-18 17:45 | NUR ---
PT CALL LIGHT ON. PT REQUESTS ASSISTANCE UP TO RESTROOM. STAND BAY ASSIST W/FWW UP TO RESTROOM. PT VOIDS ADDITONAL CLEAR YELLOW URINE. PT REPORTS "I SURE HAVE TO GO PEE A LOT." EDUCATION DONE WITH PT REGARDING OUTPUT, IV HYDRATION AND NEED TO DRINK PRIOR TO STOPPING IV FLUIDS. PT CONTINUES TO WORK ON HER BOTTLE OF PREMIER PROTEIN. PT PERFORMS SELF MARQUITA CARE. STAND BY ASSIST WITH FWW BACK TO BED. PT POSITIONED ON RIGHT SIDE, SUPPORTED WITH PILLOWS FOR HER COMFROT. PT DENIES ADDITIONAL REQUESTS OR COMPLAINTS. CALL LIGHT WIHTIN REACH. BED RAILS UP.
--- NOTE | 2022-12-18 18:38 | NUR ---
THIS RN TO ROOM TO CHECK ON PT. PT REPORTS NEED TO GET UP TO RESTROOM. STAND BY ASSIST WITH FWW UP TO RESTROOM. PT VOIDS WIHTOUT ISSUE AND PERFORMS SELF MARQUITA CARE. STAND BY ASSIST BACK TO BED. PT REQUESTS POSITIONING ON LEFT SIDE AT THIS TIME. SUPPORTD WITH PILLOWS. NO ADDITIONAL REQUESTS OR COMPLAINTS AT THIS TIME. CALL LIGHT WITHIN REACH. BED RAILS UP.
--- NOTE | 2022-12-18 19:15 | NUR ---
RECEIVED REPORT FROM CHAPIN CYR. PT RESTING IN BED ALERT WATCHING TV W/ROOMMATE AT BEDSIDE. PT REPORTS NO PAIN/NAUSEA AT THIS TIME. IV FLUIDS INFUSING DIRECTED, PORT WNL. CHAPIN CYR NOW ASSISTING PT W/AMBULATION TO BATHROOM W/FWW (STANDBY ASSIST).
--- NOTE | 2022-12-18 20:00 | NUR ---
IN PT ROOM FOR ASSISTANCE TO RESTROOM. STANDBY ASSIST W/FWW TO RESTROOM. URINE VOID RECORDED. PT NOW RESTING IN BED, IV FLUIDS INFUSING DIRECTED, PORT SITE WNL. ASSESSMENT AND VS PERFORMED. VSS. +1 EDEMA IN BLE (FEET). PULSES PRESENT THROUGHOUT. SKIN INTACT, NO SIGNS OF BREAKDOWN AT THIS TIME. LUNGS ARE CLEAR THROUGHOUT. BOWEL TONES ACTIVE X4. PT REPORTS NO NAUSEA, PAIN, N/T, DIZZINESS, SOB AT THIS TIME. CALLED AND UPDATED ABOUT URINE OUTPUT, CONTINUOUS FLUIDS DC'ED PER ANTHONY POSADA ORDER. PT PORT NOW SALINE LOCKED. CALL LIGHT WITHIN REACH, NO FURTHER NEEDS AT THIS TIME. NO INSULIN GIVEN D/T BS WITHIN NORMAL RANGE.
--- NOTE | 2022-12-18 21:15 | NUR ---
CALL LIGHT ANSWERED, pt UP SBA WITH FWW TO VOID IN BATHROOM. 400MLS OUTPUT NOTED, pt BACK TO BED. STEADY ON FEET. IV PUMP ALARMING, ISSUE RESOLVED, IV FLUIDS INFUSING DIRECTED. FRESH WATER ALSO PROVIDED, pt INTERACTIVE WITH STAFF. NO ADDITIONAL NEEDS OR CONCERNS VERBALIZED, CALL LIGHT IN REACH.
--- NOTE | 2022-12-18 22:10 | NUR ---
IN PT ROOM FOR HEP LOCK PER PROTOCAL. STANDBY ASSIST W/FWW TO RESTROOM FOR URINE VOID, RECORDED. PT VERBALLY STATES UNDERSTANDING OF INCREASING ORAL INTAKE D/T DISCONTINUED IV FLUIDS, TOLERATING WELL AT THIS TIME. WARM BLANKET PROVIDED, CALL LIGHT WITHIN REACH, NO FURTHER NEEDS AT THIS TIME.
--- NOTE | 2022-12-19 00:47 | NUR ---
PT RESTING W/EYES CLOSED. RESPIRATIONS ARE EVEN AND UNLABORED, NO SIGNS OF DISTRESS. CALL LIGHT WITHIN REACH.
--- NOTE | 2022-12-19 02:50 | NUR ---
PT RESTING IN BED W/EYES CLOSED. RESPIRATIONS ARE EVEN AND UNLABORED, NO SIGNS OF DISTRESS. CALL LIGHT WITHIN REACH.
--- NOTE | 2022-12-19 03:20 | NUR ---
PERFORMED HOURLY ROUNDING, PT LAYING AWAKE IN BED WATCHING TV. PT REPORTS NO PAIN, NAUSEA, N/T, DIZZINESS, OR SOB AT THIS TIME. NO ACUTE CHANGES FROM PREVIOUS ASSESSMENT. PORT SITE WNL, NO REDNESS/SWELLING OR PAIN REPORTED BY PT. ICE WATER PROVIDED. CALL LIGHT WITHIN REACH, NO FURTHER NEEDS AT THIS TIME.
--- NOTE | 2022-12-19 04:43 | NUR ---
TRINI CYR ASSISTING PT W/STANDBY ASSIST TO RESTROOM W/FWW. PT NOW RESTING IN BED WATCHING TV. PT REPORTS NO PAIN/NAUSEA AT THIS TIME. CALL LIGHT WITHIN REACH, NO FURTHER NEEDS AT THIS TIME.
--- NOTE | 2022-12-19 07:18 | NUR ---
REPORT RECEIVED FROM KLARISSA PEARSON. PT RESTING IN BED WATCHING TV. PT REPORTS HEAT PACK HAS RESOLVED HER ABDOMINAL CRAMPING. PT DENIES PAIN AND NAUSEA AT THIS TIME. PT REPORTS SHE WOULD LIKE TO TRY EATING CEREAL THIS MORNING. ORDER PLACED WITH KITCHEN. PT DENIES ADDITIONAL REQUESTS OR COMPLAINTS. CALL LIGHT WITHIN REACH. BED RAILS UP.
--- NOTE | 2022-12-19 08:12 | NUR ---
MORNING ASSESSMENT AND MEDICATION DUE. PT RESTING IN BED. PT DENIES PAIN AND NAUSEA. STAND BY ASSIST WITH FWW UP TO RESTROOM. PT VOIDS AND HAS MODERATE SIZED BROWN BOWEL MOVEMENT. PT REPORTS FEELING "MUCH BETTER" AFTER BOWEL MOVEMENT. PT PERFORMS SELF MARQUITA CARE. STAND BY ASSIST UP TO CHAIR. LIDOCANE PATCH APPLIED WITH OPSITE TO HOLD IT IN PLACE FOR BACK PAIN PREVENTION. PT ALERT AND ORIENTD TO ALL. PT CARRYING ON CONVERSATION APPROPRATLY. PT RETAINING INFORMATION AND NO LONGER APPEARS FORGETFUL. PT STATES "I'M HUNGRY" ANTICIPAING CEREAL. PREMIER PROTEIN ALSO PROVIDED. PT TOLERATING PO FLUID INTAKE. PORT ASSESSED, WNL, BRISK BLOOD RETURN NOTED. SALIEN LOCKED AT THIS TIME ANTICIPATING ELECTROLYTE REPLACEMENTS. LUGN SOUNDS CLEAR. HEART TONES REGULAR. +1 PITTING EDEMA REMAINS IN BILATERAL FEET. ABDOMEN SOFT AND NON TENDER, BOWEL TONES ACTIVE. PT TALKING WITH HER BROTHER ON THE PHONE. NO ADDITIONAL REQUESTS OR COMPLAINTS. COFFEE PROVIDED. ICE WATER REFILLED. CALL IGHT WITHIN REACH.
--- NOTE | 2022-12-19 09:26 | NUR ---
NEW MEDICATIONS ORDERED. STARTED PER ORDER, SEE MAR. PT CONTINUES TO DENY PAIN AND NASUEA. PT TOELARTING CEREAL AND 1/2 OF BANANA WELL. PT DENIES NAUSEA AT THIS TIME. PORT ASSESSED, WNL, BRISK BLOOD RETURN NOTED. PT DENIES ADDITONAL REQUESTS OR COMPLAINTS. CALL LIGHT WITHIN REACH. PT REMAINS UP TO CHAIR.
--- NOTE | 2022-12-19 10:10 | NUR ---
PT CALL LIGHT ON. PT REQUESTS ASSISTANCE BACK TO BED. STAND BY ASSIST BACK TO BED. PT POSITIONS SELF FOR COMFORT. PT DENIES NAUSEA. PT TALKING WITH HER ROOMMATE ON THE PHONE. PT REPORTS HER BACK IS "SORE" AND STATES THIS RESOLVES WITH REPOSITIONING. NO ADDITIONAL REQUESTS OR COMPLAINTS. CALL LIGHT WITHIN REACH. BED RAILS UP.
--- NOTE | 2022-12-19 10:42 | NUR ---
HOURLY ROUNDING: PT RESTING IN BED ON RIGHT SIDE WITH EYES CLOSED. HEAD OF BED AT 15 DEGREES. RESPRAITIONS EVEN AND UNLABORED. MAGNESIUM INFUSION COMPLETE. K-PHOS INFUSION CONTINUES. PT ALLOWED TO REST UNDESTURBED. BED RAILS UP. CALL LIGHT WIHTIN REACH.
--- NOTE | 2022-12-19 11:19 | NUR ---
pT CALL LIGHT ON. PT REQUESTS ASSISTANCE UP TO RESTROOM. STAND BY ASSIST WITH FWW UP TO RESTROOM. PT VOIDS WITHOUT ISSUE. PT PERFORMS SELF MARQUITA CARE. FRESH UNDERWARE PROVIDED. STAND BY ASSIST BACK TO BED. PT POSITIONED ON RIGHT SIDE, SUPPORTED WITH PILLOWS. PT DENIES PAIN AND NAUSEA STATING HER BACK IS "FINE." PT DENIES ADDITIONAL REQUESTS OR COMPLAINTS. CALL LIGHT WITHIN REACH. BED RAILS UP.
--- NOTE | 2022-12-19 12:15 | NUR ---
PT CALL LIGHT ON. PT REQUESTS ASSISTANCE UP TO RESTROOM. STAND BY ASSIST UP TO RESTROOM. PT VOIDS WITHOUT ISSUE. PT PERFORMS SELF MARQUITA CARE. STAND BY ASSIST BACK TO BED. PT AGREES TO TOAST AND PREMIER PROTIEN (LEFTOVER FROM BREAKFAST) FOR LUNCH, PROVIDED. PT DENEIS PAIN AND NAUSEA. NO ADDITIONAL REQUESTS OR COMPLAINTS. CALL LIGHT WITHIN REACH.
--- NOTE | 2022-12-19 12:53 | NUR ---
PT CALL LIGHT ON. PT REQUESTS ASSITANCE UP TO RESTROOM. STAND BY ASSIST UP TO RESTROOM. PT VOIDS WITHOUT ISSUE. PT PERFORMS SELF MARQUITA CARE. STAND BY ASSIST BACK TO BED. PT TOELRATED 50% OF HER TOAST AND PREMIER PROTIEN DRINK . PT REPORTS HER "BELLY FEELS FULL" AND DENIES NAUSEA. PT REPORTS CONSITPATION AND REQUESTS MIRALAX. NIO PLACED. AWAITING VERIFICATION.NO COMPLAINTS OF BACK PAIN AT THIS TIME. CALL LIGHT WITHIN REACH.
--- NOTE | 2022-12-19 14:01 | NUR ---
AFTERNOON ASSESSMENT DUE. PT REQEUSTS ASSISTANCE UP TO RESTROOM. STAND BY ASSIST WITH FWW UP TO RESTROOM. PT VOIDS WITHOUT ISSUE AND PERFORMS SELF MARQUITA CARE. STAND BY ASSIST UP TO CHAIR, PT ANTICIPATING PHYSICAL THERAPY. PORT REMAINS WNL, CONTINUES INFUSION OF K-PHOS. PT DENIES PAIN AND NAUSEA. PT REPORTS BACK PAIN HAS BEEN WELL CONTROLLED TODAY. PT REMAINS ALERT AND OREINTED TO ALL. HEART TONES REGULAR. LUNG SOUNDS CLEAR. EDEMA TO BLE IMPROVING, NOW TRACE. ABDOMEN SOFT AND NON TENDER. PT CONTINUES TO TOELARTE SMALL BITES OF PO FOOD/FLUID/NUTRITIONAL REPLACEMENTS. MIRALAX GIVEN PER PT REQUEST. PT DENIES ADDITIONAL REQEUSTS OR COMPLAINTS PT WORKING WITH PYSICAL THERAPY, UP TO AMBULATE IN [place].
--- NOTE | 2022-12-19 14:46 | NUR ---
PT BACK FROM PHYSICAL THERAPY AND REQUESTS TO GET BACK TO BED. PT DENIES PAIN AND NAUSEA. PT REPORTS SHE WAS ABLE TO WALK "A ROUND AND A HALF." PT REPORTS "NOW I'M JUST REALLY TIRED." STAND BY ASSIST WITH FWW BACK TO BED. PT POSITIOINED FOR COMFORT ON RIGHT SIDE, SUPPORTED WITH PILLOWS. NO ADDITIONAL REQUESTS OR COMPLAINTS. HEAD OF BED AT 20 DEGREES. CALL LIGHT WIHTIN REACH. BED RAILS UP.
--- NOTE | 2022-12-19 15:40 | NUR ---
PT HERE FOR IFRAH AND HYPERCALCEMIA. PT UP WITH 1 PERSON ASSIST AND FWW TO CHAIR AND WITH PHYSICAL THERAPY THIS SHIFT. PT ABLE TO AMBULATE 1.5 LAPS IN [place] WITH MINIMAL SUPPORT. APPITITE IMPROVING WITH SOLID FOODS EATEN WELL PREMIER PROTEIN. PT DENIES NASUEA THIS SHIFT AND REQUESTS FOODS AT TIMES. PT CONTINUES TO REPORT TASTE CHANGES. BACK PAIN STABLE THIS SHIFT LIDOCANE PATCH HELD IN PLACE BY OPSITE. PT TOLEARTES TIME UP TO CHAIR. POTASSIUM PHOSPHATE AND MAGNESIUM RIDERS GIVEN. PT OREITNED TO ALL THIS SHIFT AND NO LONGER FORGETFUL. PORT A CATH REMAINS WNL WITH BRISK BLOOD RETURN NOTED. PT VOIDING QUANTITY SUFFICIENT. PT USES CALL LIGHT AND MAKES NEEDS KNOWN.
--- NOTE | 2022-12-19 15:55 | NUR ---
PT CALL LIGHT ON. PUMP ALARMING, INFUSION AND FLUSH COMPLETE. PORT ASSESSED, WNL. BRISK BLOOD RETURN NOTED. PORT FLUSHED AND HEPARIN LOCKED PER PROTOCOL. ALCOHOL CAP APPLIED. PT DENIES PAIN AND NAUSEA. NO ADDITIONAL REQUESTS OR COMPLAINTS. CALL LIGHT WITHIN REACH. BED RAILS UP.
--- NOTE | 2022-12-19 16:40 | NUR ---
PT ASKING MEDICAL INSURANCE CODING SPECIALIST IF SHE CAN BE INDEPENDANT IN THE ROOM. FALL PRECUATIONS REVIEWED WITH PT. PT EDUCATION DONE AND PT CONFIRMS THAT SHE HAS FALLEN MULTIPLE TIMES AT HOME. PT AGREES TO CONTINUE CALLING NURSING STAFF WHEN SHE WANTS TO GET UP. BLOOD SUGAR TAKEN. INSUIN GIVEN. PREMIER PROTEIN DRINK DELIVERED TO PT. PT REQUESTS TOAST WITH BUTTER FOR DINNER AND HONEY NUT CHERROIS (BROUGHT BY ROOMMATE). PT UP TO CHAIR FOR DINNER. NO ADDITIONAL REQUESTS OR COMPLAINTS. CALL LIGHT WITHIN REACH.
--- NOTE | 2022-12-19 18:07 | NUR ---
THIS RN TO ROOM TO CHECK ON PT. PT BACK TO BED AFTER DINNER. PT ABLE TO EAT 10% OF HER CHERRI[place] AND PART OF HER PREMIER PROTEIN DRINK. REMAINDER PREMIER PROTEIN REMAINS AT BEDSIDE. PT POSITIONED ON LEFT SIDE PER HER PREFERENCE. VITAL SIGNS STABLE. PT DENIES PAIN AND NAUSEA. ICE WATER REFILLED. CALL LIGHT WITHIN REACH. BED RAILS UP. PTS ROOMMATE, LISA, AT BEDSIDE,
--- NOTE | 2022-12-19 19:12 | NUR ---
RECEIVED REPORT FROM CHAPIN CYR. PT RESTING IN BED W/ROOMMATE FROM HOME AT BEDSIDE. PT REPORTS NO PAIN/NAUSEA AT THIS TIME. CHAPIN NOW STANDBY ASSIST W/PT UP TO RESTROOM FOR URINE VOID. CALL LIGHT WITHIN REACH.
--- NOTE | 2022-12-19 20:10 | NUR ---
IN PT ROOM FOR ASSESSMENT, VS, I/O'S, AND BS CHECK. NO INSULIN GIVEN D/T BS OF 110. MIRALAX GIVEN IN CRANBERRY JUICE. PT REPORTS NO PAIN, NAUSEA, N/T, DIZZINESS, OR SOB AT THIS TIME. PORT WNL, HEP LOCKED PER REPORT FROM CHAPIN CYR. PULSES PRESENT THROUGHOUT, LUNG SOUNDS CLEAR THROUGHOUT, BOWEL TONES ACTIVE X4. +1 EDEMA IN BILAT FEET. PT IS A&O X4. SKIN INTACT, NO SIGNS OF BREADKOWN AT THIS TIME, PT IS ABLE TO ADJUST SELF IN BED. STANDBY ASSIST TO BATHROOM, PT NOW RESTING BACK IN BED. CALL LIGHT WITHIN REACH, NO FURTHER NEEDS AT THIS TIME.
--- NOTE | 2022-12-19 23:05 | NUR ---
STANDBY ASSIST W/PT TO BATHROOM, URINE VOID RECORDED. PT NOW RESTING BACK IN BED, PILLOW PLACED BEHIND BACK TO SUPPORT ON RT SIDE. CALL LIGHT WITHIN REACH, NO FURTHER NEEDS AT THIS TIME.
--- NOTE | 2022-12-20 00:35 | NUR ---
PT RESTING ON RT SIDE W/EYES CLOSED. RESPIRATIONS ARE EVEN AND UNLABORED, NO SIGNS OF DISTRESS. CALL LIGHT WITHIN REACH. PT APPEARS COMFORTABLE AT THIS TIME.
--- NOTE | 2022-12-20 01:18 | NUR ---
PT RESTING W/EYES CLOSED. RESPIRATIONS ARE EVEN AND UNLABORED, NO SIGNS OF DISTRESS. CALL LIGHT WITHIN REACH. PT APPEARS COMFORTABLE AT THIS TIME.
--- NOTE | 2022-12-20 01:50 | NUR ---
STANDBY ASSIST W/FWW TO RESTROOM. PT HAD UNMEASURABLE VOID AND SM SOFT BM. ASSISTED PT BACK TO BED AND REPOSITIONING. PT REPORTS NO PAIN OR NAUSEA AT THIS TIME. NO ACUTE CHANGES FROM PREVIOUS ASSESSMENT. CALL LIGHT WITHIN REACH, NO FURTHER NEEDS AT THIS TIME.
--- NOTE | 2022-12-20 03:25 | NUR ---
PT RESTING W/EYES CLOSED. RESPIRATIONS ARE EVEN AND UNLABORED, NO SIGNS OF DISTRESS. CALL LIGHT WITHIN REACH.
--- NOTE | 2022-12-20 05:10 | NUR ---
ANSWERED CALL LIGHT. PT REPORTS STOMACH IS GROWLING. CHEERIOS PROVIDED. MARSHA BAKERA IN ROOM PERFORMING VS. ICE WATER REFILLED. CALL LIGHT WITHIN REACH. NO FURTHER NEEDS.
--- NOTE | 2022-12-20 06:20 | NUR ---
IN PT ROOM FOR PORT BLOOD DRAW, PROTOCAL FOLLOWED, HUBS REPLACED, ALCOHOL CAPS IN PLACE. PT REPORTS NO PAIN/NAUSEA AT THIS TIME. CALL LIGHT WITHIN REACH, NO FURTHER NEEDS AT THIS TIME.
--- NOTE | 2022-12-20 07:20 | NUR ---
REPORT RECEIVED FROM KLARISSA PEARSON. PT RESTING IN BED. PT DENIES PAIN AND NAUSEA. PT SNACKING ON CHERRIOS. NO ADDITIONAL REQUESTS OR COMPLAINTS AT THIS TIME. CALL LIGHT WITHIN REACH. BED RAILS UP.
--- NOTE | 2022-12-20 09:33 | NUR ---
MORNING ASSESSMENT AND MEDICATION DUE. PT UP TO CHAIR, FINISHED WITH BREAKFAST, CONTINUES EATING CHERIORRIOS FROM TIME TO TIME. COFFEE PROVIDED WITH MIRALAX PER PT REQUEST. PT DENEIS PAIN AND NAUSEA. PORT ASSESSED, WNL. BRISK BLOOD RETURN NOTED. IV INFUSIONS STARTED (SEE MAR). PT ALERT AND OREINTED TO ALL. PT ANSWERING QUESTIONS APPORPIRATLY. PT RECALLS VISIT WITH CASE MANAGEMENT THIS MORNING AND REPORTS SHE IS COMFORTABLE WITH THE PLAN OF CARE. STAND BY ASSIST WITH FWW UP TO RESTROOM. PT REPORTS NEED TO HAVE A BOWEL MOVEMENT. PT PERFORMS SELF MARQUITA CARE. STAND BY ASSIST BACK TO CHAIR. LUNG SOUNDS CLEAR. HEART TONES REGULAR. EDEMA TO BILATERAL FEET CONTINUES TO IMPROVE. ABDOMEN SOFT AND NON TENDER. BOWEL TONES ACTIVE. PT DRINKING PREMIER PROTEIN. SNUFF GRINDER AND SCREENER CONSULATION IN PLACE. PT TOLERATING CHEERIOS FOR BREAFAST. REPORTS MORE CRAVINGS FOR "REAL FOOD." BLANCHABEL REDNESS NOTED TO GLUTEAL AREA. BARRIER CREAM APPLIED. PT DENIES ADDITIONAL REQEUSTS OR COMPLAINTS. CALL LIGHT WITHIN REACH.
--- NOTE | 2022-12-20 10:18 | NUR ---
HOURLY ROUNDING: PT UP TO CHAIR. PT CONTINUES TO DENY PAIN AND NAUSEA. LUNCH ORDER, FOR TOAST AND BANANA, ORDERED FOR PT. PT DENIES ADDITIONAL REQUESTS OR COMPLAINTS. PT TALKS ABOUT HOW MUCH BETTER SHE IS DOING AND HER PLAN FOR WHEN SHE GETS HOME. CALL LIGHT WITHIN REACH.
--- NOTE | 2022-12-20 10:52 | NUR ---
THIS MORNING WHEN HER BREAKFAST CAME. PATIENT WANTED TO SIT IN HER CHAIR FOR BREAKFAST. WHEN I OPENED THE LID SHE SAID I CAN'T EAT THAT. SO I TOOK IT OUT OF THE ROOM. THAN I PEELED HER ONE OF HER ORANGES. SHE TOOK A SMALL BITE AND SPIT IT OUT. SO THROW THAT AWAY. SHE DID EAT HER APPLESAUCE.
--- NOTE | 2022-12-20 11:22 | NUR ---
HOURLY ROUNDING: PT REMAIN UP TO CHAIR. PT TALKING WITH FRIEND ON THE PHONE. PT DENIES PAIN AND NAUSEA. PT DENEIS ADDITIONAL REQUESTS OR COMPLAINTS. CALL LIGHT WITHIN REACH. MAGENESIUM INFUSION COMPLETE. K-PHOS CONTIUES.
--- NOTE | 2022-12-20 11:30 | NUR ---
Spoke with Markusjatin. She states she is doing so much better. Updated I received notification from [facility] they will accept her. [facility] does not have any beds open. She states she will go to [facility]. Discussed if she wants to have her sister complete a POA with her. She states initially she wanted to have both her sister and her brother as co POAs. Her brother lives out of states and cannot be here. I discussed the notoray must be shown ID and her brother would need to be here. Kita states she is fine with her sister as her POA. I told her when her brother visits later this year they can complete again with both sister and brother at the bank with a notary. i spoke with Sybil Jolly and asked if she can fit this into her schedule tomorrow and she states at 9 am. I called and spoke with pts sister and she will be here at 0900 tomorrow with the POA form. Transportation for [facility] has been scheduled at 11:00as requested by DARION at [facility]. called and spoke with pts sister and she will b
--- NOTE | 2022-12-20 12:01 | NUR ---
DID PATIENT'S BLOOD SUGAR CHECK FOR BREAKFAST AND LUNCH. PATIENT IS STILL UP IN HER CHAIR.
--- NOTE | 2022-12-20 12:24 | NUR ---
LUNCH DELIVERED TO PT. PT REMAINS UP TO CHAIR. PT REPORTS APPITITE IS IMPROVING. PT EATING BANANA, TOAST AND CEREAL WITH MILK. INSULIN GIVEN. PT DENIES PAIN AND NAUSEA. PT DENIES ADDITONAL REQUESTS OR COMPLAINTS. CALL LIGHT WITHIN REACH.
--- NOTE | 2022-12-20 13:00 | NUR ---
PT SITTING IN CHAIR-ALERT AND ORIENTED. PT SEEMS PLEASANT, DECIDED TO STOP CHEMO FOR THE TIME BEING. HAD GOOD VISIT,PT REQUESTED TO HAVE [facility] TODAY AFTER MASS. WILL INFORM. GAVE BLESSING AND WILL FOLLOW
--- NOTE | 2022-12-20 13:22 | NUR ---
THIS RN TO ROOM TO CHECK ON PT. PT UPDATED ON PLAN OF CARE. PT DENIES PAIN AND NAUSEA AND IS TALKING WITH FRIEND ON THE PHONE. PT DENIES REQUESTS OR COPMLAINTS. STAND BY ASSIST UP TO RESTROOM AND THEN BACK TO BED. CALL LIGHT WITHIN REACH. BED RAILS UP.
--- NOTE | 2022-12-20 14:40 | NUR ---
PATIENT SAID SHE WOULD LIKE TO TAKE A SHOWER TOMORROW BEFORE SHE LEAVES.
--- NOTE | 2022-12-20 14:52 | NUR ---
AFTERNOON ASSESSMENT DUE. PT RESTING IN BED AFTER WALKING 1 LAP IN [place] WITH PHYSICAL THERAPY. PT REPORTS SHE IS AMBULATING WELL. PT DENIES PAIN AND NAUSEA. PT ALERT AND OREINTED TO ALL. PT VERBALIZES UNDERSTANDING OF PLAN OF CARE AND REPORTS SHE IS GLAD TO HAVE A PLACE AT [facility]. PT ANTICIPATING TRANSFER TO [facility] TOMORROW. EDEMA TO BLE RESOLVED. HEART TONES REGULAR. LUNG SOUNDS CLEAR. ABDOMEN SOFT AND NON TENDER WITH ACTIVE BOWEL TONES. PT CONTINUES TOELARTING BLAND FOODS. PT STATES "I COULD BRUSH MY TEETH THIS MORNING WITHOUT FEELING NAUSEOUS." REDENESS TO GLUTEA AREA STABLE. PT DENIES ADDITIONAL REQUESTS OR COMPLAINTS. CONTINUES TELING STORIES IN ONE LONG STREAM OF WORDS. ICE WATER REFILLED. CALL LIGHT WITHIN REACH. BED RAILS UP.
--- NOTE | 2022-12-20 15:50 | NUR ---
IV PUMP ALARMING, INFUSION AND FLUSH COMPLETE. PORT ASSESSED, WNL, BRISK BLOOD RETURN NOTED. PORT FLUSHED AND HEPARIN LOCKED PER PROTOCOL. ALOCHOL CAP APPLIED. PT UP TO RESTROOM WITH STAND BY ASSIST AND FWW. PT VOIDS WITHOUT ISSUE. PT PERFORMES SELF MARQUITA CARE. PT DENIES PAIN AND NAUSEA. NO ADDITONAL REQUESTS OR COMPLAINTS. CALL LIGHT WITHIN REACH. BED RAILS UP.
--- NOTE | 2022-12-20 15:53 | NUR ---
PATIENT CALLED. PATIENT WAS DONE IN THE BATHROOM. PATIENT IS NOW LAYING IN BED WATCHING A MOVIE.
--- NOTE | 2022-12-20 16:45 | NUR ---
PT HERE FOR IFRAH AND HYPERCALCEMIA. PT UP WITH 1 PERSON ASSIST AND FWW TO CHAIR AND WITH PHYSICAL THERAPY THIS SHIFT. PT ABLE TO AMBULATE 1 LAP IN [place] WITH MINIMAL SUPPORT. APPITITE IMPROVING WITH SOLID FOODS EATEN. PT DENIES NASUEA THIS SHIFT AND REQUESTS FOODS AT TIMES REPORTING IMPROVED APPITITE. PT CONTINUES TO REPORT TASTE CHANGES. BACK PAIN STABLE THIS SHIFT LIDOCANE PATCH HELD IN PLACE BY OPSITE. PT TOLEARTES TIME UP TO CHAIR. POTASSIUM PHOSPHATE AND MAGNESIUM RIDERS GIVEN. PT OREITNED TO ALL THIS SHIFT AND NO LONGER FORGETFUL. PORT A CATH REMAINS WNL WITH BRISK BLOOD RETURN NOTED. PT VOIDING QUANTITY SUFFICIENT. PT USES CALL LIGHT AND MAKES NEEDS KNOWN. PT ANTICIPATING TRANSFER TO [facility] TOMORROW FOR REHAB.
--- NOTE | 2022-12-20 17:21 | NUR ---
MEDICATION DUE. PT UP TO RESTROOM WITH STAND BY ASSIST. PT PERFORMS SELF MARQUITA CARE. STAND BY ASSIST UP TO CHAIR FOR DINNER. PT EATING FRUIT FOR DINNER. PT WORKING ON PHONE. PT DENIES PAIN AND NAUSEA. NO ADDITIONAL REQUSTS OR COMPLAINTS. CALL LIGHT WITHIN REACH.
--- NOTE | 2022-12-20 18:35 | NUR ---
HOURLY ROUDNING: PT UP TO CHAIR. FINISHED WITH DINNER. PT DENIES PAIN AND NASUEA. STAND BY ASSIST UP TO RESTROOM. PT VOIDS WITHOUT ISSUE. PT PERFORMS SELF MARQUITA CARE. STAND BY ASSIST BACK TO BED. PT DENIES ADDITONAL REQUESTS OR COMPLAINTS. CALL LIGHT WITHIN REACH. BED RAILS UP.
--- NOTE | 2022-12-20 22:30 | NUR ---
SBA TO THE BATHROOM AND BACK TO BED. NO OTHER CARE NEEDS AT THIS TIME.
--- NOTE | 2022-12-21 04:33 | NUR ---
pt lying in bed resting quietly. resp even et unlabored able to make needs known. pt port a cath to left chest fluses well dressing clean and intact. pt being d/c this a.m. to rehab facility. pt requires standby assist with rolling walker. pt has no complaints of pain or distress at this time.
--- NOTE | 2022-12-21 06:29 | NUR ---
CALL LIGHT ANSWERED. SBA WITH FWW TO RESTROOM FOR VOID AND BACK TO BED. GAIT STEADY. PERSONAL SUPPLIES IN REACH.
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
--- NOTE | 2022-12-21 09:09 | NUR ---
MORNING ASSESSMENT AND MEDICATION DUE. PT FINISHED WITH SHOWER AND UP TO CHAIR. PT SIGNING POWER OF FARMWORKERS DOCUMENTS WITH SISTER AND NOTERY. PT VERBALIZES UNDERSTANDING OF PLAN OF CARE AND POWER OF FARMWORKERS DOCUMENTS. PT DENIES PAIN AND NAUSEA. PT REMAINS ALERT AND ORIENTED TO ALL. PT TALKING CONSTANTLY, REPORTS SHE NERVOUS AND EXCITED ABOUT TRANSFER. PTS SISTER AT BEDSIDE AND TALKING WITH PT. HEART TONES REGULAR. LUNG SOUNDS CLEAR. ABDOMEN SOFT AND NON TENDER. PT REMAINS A BMAT LEVEL 3 WITH STAND BY ASSIST AND FWW. PT DRESSED AND READY FOR DISCHARGE. PORT-A-CATH FLUSHED, BRISK BLOOD RETURN NOTED, HEPARIN LOCKED PER PROTOCOL. PT DECLINES A BANDAID. PT REMAINS UP TO CHAIR. VISITING WITH SISTER. NO ADDITIONAL REQUESTS OR COMPLAINTS. CALL LIGHT WITHIN REACH.
--- NOTE | 2022-12-21 10:00 | NUR ---
In and spoke with Kita and her sister Nannette. Pt remains agreeable to go to [facility] today. She states she is having some anxiety, but plans on going. We discussed if she doesn't like it, she can discharge to home. Sister encouraging pt to go for rehab and pt states she is having a case of the nerves. Pt did complete POA and has a copy. Notary also gave CM a copy to send to medical records. Pt and sister deny any needs and plan remains for dc to [facility] at 11:00 per van. Received orders for Dr. Hernandes and faxed Orders, PASRR, Covid test to [facility] with note showing 5 day emar, PT/OT, DC summary notes in envelope for transport.
--- NOTE | 2022-12-21 10:46 | NUR ---
PT READY FOR DISCHARGE. PT DRESSED AFTER SHOWER. PT DENIES PAIN AND NAUSEA. DISCHARGE INSTRUCTIONS REVIEWED WITH PT AND PTS SISTER. PT AND SISTER VERBALZIES UNDERSTANDING OF INSTRUCTIONS AND STATE THEIR QUESTIONS HAVE BEEN ANSWERED. VITAL SIGNS STABLE. PT DENIES ADDIITONAL REQUESTS OR CONCERNS. PT WHEELED FROM MED/SURG TO MEET TRANSPORTATION PERSONELL.
--- NOTE | 2022-12-21 10:56 | NUR ---
Student nurse stood outside of door in case pt needed assistance.
--- NOTE | 2022-12-21 12:20 | NUR ---
REPORT CALLED TO ALYSSA AT [facility] WHO STATES ALL HER QUESTIONS HAVE BEEN ANSWERED.
== END 2022-12-21 11:00 | DRG 682 ==
LOC: ED 10:14 → MS 13:32
PROVIDERS: ADMIT Family Medicine; ATTEND Internal Medicine
DX: N17.9 Acute kidney failure, unspecified (principal); E43 Unspecified severe protein-calorie malnutrition; Z20.822 Contact with and (suspected) exposure to COVID-19; E83.52 Hypercalcemia; C50.919 Malignant neoplasm of unspecified site of unspecified female breast; E86.0 Dehydration; E11.9 Type 2 diabetes mellitus without complications; E03.9 Hypothyroidism, unspecified; R11.2 Nausea with vomiting, unspecified; R19.7 Diarrhea, unspecified; M54.9 Dorsalgia, unspecified; Z68.25 Body mass index [BMI] 25.0-25.9, adult; Z98.890 Other specified postprocedural states; Z98.891 History of uterine scar from previous surgery; Z88.0 Allergy status to penicillin; Z88.8 Allergy status to other drugs, medicaments and biological substances; Z79.899 Other long term (current) drug therapy
CPT/HCPCS: 36415; 70450; 71045; 80048; 80053; 81001; 83735; 83970; 84100; 84443; 84484; 85025; 87502; 97110; 97116; 97161; 97166; 97530; A9270; C9113; C9803; G0480; J1650; J1790; J1815; J2270; J2405; J3475; J7030; J7060; J7512; U0003

== ENCOUNTER 2023-09-29 14:13 | Emergency (ER) | payer OTHER, MEDICARE ==
[~2023-09-29] VITALS: Ht 157.5 cm; Wt 72.1 kg
[~2023-09-29 14:13] MED LIST changes: +ATORVASTATIN CA20 MG PO; +FAMOTIDINE20 MG PO; +LEVOTHYROXINE100 MCG PO; +METFORMIN HCL500 M1 PO; +ONDANSETRON ODT8 MG PO; +OZEMPIC1 MG/0.71 SUB-Q; +PREDNISONE5 MG PO
--- OUTSIDE RECORDS SUMMARY | 2023-09-29 14:17 | XMS ---
PreManage Notification: LORENA SHEA Security Personal Computer Network Analyst Events No recent Security Events currently on file CRITERIA MET - CHRISTIANP CARE PROVIDERS -Sunitha- Dentist: Database Coordinator [facility] PHONE: [phone] FABIO MATHEWS Line Servicer: Foot \T\ Ankle Surgery Current PHONE: [phone] RICHAR MCCRACKEN Internal Medicine Current PHONE: [phone] Gina Tripp Nurse Practitioner: Family Current PHONE: Unknown STUART LEWIS Nurse Practitioner: Family Current PHONE: Unknown SOTERO TRENT Internal Medicine Current PHONE: [phone] JE LAGUNA Nurse Practitioner: Family Current PHONE: [phone] SAHRA HAYES Nurse Practitioner Danielle BROWNGH PHONE: [phone] CRISTINE NUNEZ Family Medicine Current PHONE: [phone] Shannon has no Care Guidelines for this patient. Martín VISIT COUNT (12 MO.) 3 ALETHEA Chaparro [facility] TOTAL 4 NOTE: Visits indicate total known visits. ED/UCC VISIT TRACKING (12 MO.) 09/29/2023 14:13 [facility] [place] TYPE: Emergency COMPLAINT: - ABDOMINAL PAIN 12/16/2022 10:15 [facility] [place] TYPE: Emergency COMPLAINT: - POSS REACTION TO TREATMENT, AMS 12/04/2022 13:03 [facility] [place] TYPE: Emergency COMPLAINT: - WEAKNESS DIAGNOSES: - Allergy status to analgesic agent - Allergy status to penicillin - long term acute care registered nurse (current) use of oral hypoglycemic drugs - Low back pain, unspecified - Nicotine dependence, unspecified, uncomplicated - Other [place] [facility] [place] ([place]) drug therapy - Other symptoms and signs involving the musculoskeletal system - Type 2 diabetes mellitus without complications - Urinary tract infection, site not specified - Weakness 11/23/2022 15:18 [facility] TYPE: Emergency COMPLAINT: - WEAKNESS FOLLOWING CHEMO TX DIAGNOSES: - WEAKNESS FOLLOWING CHEMO TX INPATIENT VISIT TRACKING (12 MO.) 12/16/2022 13:[address] [facility] [place] TYPE: Medical Surgical COMPLAINT: - HYPERCALCEMIA, ACUTE KIDNEY INJURY DIAGNOSES: - Acute kidney failure, unspecified - Acute kidney failure, unspecified - Acute kidney failure, unspecified - Allergy status to other drugs, medicaments and biological substances - Allergy status to other drugs, medicaments and biological substances - Allergy status to other drugs, medicaments and biological substances - Allergy status to penicillin - Allergy status to penicillin - Allergy status to penicillin - Body mass index [BMI] 25.0-25.9, adult - Body mass index [BMI] 25.0-25.9, adult - Body mass index [BMI] 25.0-25.9, adult - Contact with and (suspected) exposure to COVID-19 - Contact with and (suspected) exposure to COVID-19 - Contact with and (suspected) exposure to COVID-19 - Dehydration - Dehydration - Dehydration - Diarrhea, unspecified - Diarrhea, unspecified - Diarrhea, unspecified - Dorsalgia, unspecified - Dorsalgia, unspecified - Dorsalgia, unspecified - History of uterine scar from previous surgery - History of uterine scar from previous surgery - History of uterine scar from previous surgery - Hypercalcemia - Hypothyroidism, unspecified - Hypothyroidism, unspecified - Hypothyroidism, unspecified - Malignant neoplasm of unspecified site of right female breast - Malignant neoplasm of unspecified site of unspecified female breast - Malignant neoplasm of unspecified site of unspecified female breast - Malignant neoplasm of unspecified site of unspecified female breast - Nausea with vomiting, unspecified - Nausea with vomiting, unspecified - Nausea with vomiting, unspecified - Other [place] [facility] [place] drug therapy - Other [place] [facility] [place] drug therapy - Other [place] [facility] [place] (current) drug therapy - Other specified postprocedural states - Other specified postprocedural states - Other specified postprocedural states - Type 2 diabetes mellitus without complications - Type 2 diabetes mellitus without complications - Type 2 diabetes mellitus without complications - Unspecified severe protein-calorie malnutrition - Unspecified severe protein-calorie malnutrition - Unspecified severe protein-calorie malnutrition [id number]
[2023-09-29] MEDS ORDERED: LEVOTHYROXINE100 MC2 (14:18)
[2023-09-29 16:15] VITALS: BP 105/71
== END 2023-09-29 16:15 | disposition home or self-care (01) ==
LOC: ED 14:13
DX: S43.402A Unspecified sprain of left shoulder joint, initial encounter (principal); S30.0XXA Contusion of lower back and pelvis, initial encounter; D64.9 Anemia, unspecified; V89.2XXA Person injured in unspecified motor-vehicle accident, traffic, initial encounter; E11.9 Type 2 diabetes mellitus without complications; F17.200 Nicotine dependence, unspecified, uncomplicated; Z88.0 Allergy status to penicillin; Z88.6 Allergy status to analgesic agent; Z79.899 Other long term (current) drug therapy; Z79.84 Long term (current) use of oral hypoglycemic drugs
CPT/HCPCS: 73030; 74177; 99284-25; Q9967

== ENCOUNTER 2024-03-30 14:36 | Emergency (ER) | payer MEDICARE, OTHER ==
[~2024-03-30] VITALS: Ht 157.5 cm; Wt 60.0 kg
[~2024-03-30 14:36] MED LIST changes: +LEVOTHYROXINE100 MC2
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
[2024-03-30] MEDS ORDERED: SODIUM CHLORIDE 0.9% 500 ML IV ONE (15:00)
[2024-03-30] MEDS ORDERED: SODIUM CHLORIDE 0.9% 1,000 ML IV ONE (15:15)
[2024-03-30 16:53] LABS: BILIRUBIN, URINE NEGATIVE (negative); BLOOD/HGB, URINE TRACE-I (Negative); KETONE, URINE TRACE (Negative); LEUK ESTERASE, URINE TRACE (negative); NITRITE, URINE NEGATIVE (negative)
[2024-03-30 17:00] LABS: EPITHELIAL CELLS, URINE SQUAMOUS 1+ /lpf (0-1+)
[2024-03-30 17:01] LABS: BACTERIA, URINE NONE SEEN /hpf (negative); COLLECTION TYPE, URINE CLEAN CATCH; CRYSTALS, URINE NONE SEEN (0-1+)
[2024-03-30 17:02] LABS: CASTS, URINE HYALINE 2+ \\lpf
[2024-03-30 17:04] LABS: REFLEX CULTURE, URINE No (No)
[2024-03-30] MEDS ORDERED: ONDANSETRON ODT8 MG PO (17:19)
[2024-03-30] MEDS ORDERED: PROMETHAZINE HC25 M1 PO (17:19)
[2024-03-30 17:33] VITALS: BP 153/126
== END 2024-03-30 17:33 | disposition home or self-care (01) ==
LOC: ED 14:36
PROVIDERS: Emergency Medicine
DX: E86.0 Dehydration (principal); R11.2 Nausea with vomiting, unspecified; E87.1 Hypo-osmolality and hyponatremia; E11.9 Type 2 diabetes mellitus without complications; F17.200 Nicotine dependence, unspecified, uncomplicated; Z88.6 Allergy status to analgesic agent; Z88.0 Allergy status to penicillin; Z79.890 Hormone replacement therapy; Z79.84 Long term (current) use of oral hypoglycemic drugs; Z79.899 Other long term (current) drug therapy
CPT/HCPCS: 80053; 81001; 83735; 85025; 96360; 96361; 99284-25; J7030; J7040

== ENCOUNTER 2024-06-16 17:19 | Emergency (ER) | payer MEDICARE, OTHER ==
[~2024-06-16] VITALS: Ht 157.5 cm; Wt 74.0 kg
[~2024-06-16 17:19] MED LIST changes: +PROMETHAZINE HC25 M1 PO
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
[2024-06-16] MEDS ORDERED: LACTATED RINGER'S 1,000 ML IV ONE ×2 (17:45→19:00)
[2024-06-16 17:47] LABS: BILIRUBIN, URINE NEGATIVE (negative); BLOOD/HGB, URINE SMALL (Negative); KETONE, URINE NEGATIVE (Negative); LEUK ESTERASE, URINE NEGATIVE (negative); NITRITE, URINE NEGATIVE (negative)
[2024-06-16 17:50] LABS: PH, VENOUS 7.322 (7.31-7.41)
[2024-06-16 17:53] LABS: BACTERIA, URINE NONE SEEN /hpf (negative); CASTS, URINE NONE SEEN \\lpf; COLLECTION TYPE, URINE CLEAN CATCH; CRYSTALS, URINE NONE SEEN (0-1+); EPITHELIAL CELLS, URINE NONE SEEN /lpf (0-1+); REFLEX CULTURE, URINE No (No); WHITE BLOOD CELLS, URINE 0-1 /HPF (0-5)
[2024-06-16 17:53] LABS: BASOPHILS 0.8 % (0-2); EOSINOPHILS 0.9 % (0-6); HEMATOCRIT 32.7 % (35.0-50.0); HEMOGLOBIN 11.1 g/dL (12.0-18.0); LYMPHOCYTES 37.6 % (24-44); MCH 31.9 (27-36); MCV 93.9 fl (81-99); MONOCYTES 14.9 % (0-12); NEUTROPHILS 45.8 % (39-80); PLATELET COUNT 211 K/uL (140-440); RBC 3.48 M/ul (4.3-5.7); RDW 13.9 (10.5-15.0)
[2024-06-16 18:04] LABS: INR 1.07 (0.80-1.30); PROTIME 13.6 Sec (11.2-14.2)
[2024-06-16 18:13] LABS: AMPHETAMINES, URINE NEGATIVE (NEGATIVE); BARBITURATES, URINE NEGATIVE (NEGATIVE); BENZODIAZEPINE, URINE NEGATIVE (NEGATIVE); BUPRENORPHINE, URINE NEGATIVE (NEGATIVE); CANNABINOID, URINE NEGATIVE (NEGATIVE); COCAINE, URINE NEGATIVE (NEGATIVE); ECSTASY, URINE NEGATIVE (NEGATIVE); FENTANYL, URINE NEGATIVE (NEGATIVE); METHADONE, URINE NEGATIVE (NEGATIVE); OPIATES, URINE NEGATIVE (NEGATIVE); OXYCODONE, URINE NEGATIVE (NEGATIVE); PHENCYCLIDINE, URINE NEGATIVE (NEGATIVE)
[2024-06-16 18:19] LABS: ALBUMIN 3.6 g/dL (3.4-5.0); ALBUMIN/GLOBULIN RATIO 1.09 (1.1-2.4); ALCOHOL, MEDICAL <3 ng/dL (<3); ALKALINE PHOSPHATASE 88 U/L (46-116); ALT (SGPT) 11 U/L (14-59); ANION GAP 13.9 (7-21); AST (SGOT) 17 U/L (15-37); BUN/CREATININE RATIO 9.02 (6.0-28.6); CALCIUM 9.2 mg/dL (8.5-10.1); CARBON DIOXIDE 24 mmol/L (21-32); CHLORIDE 94 mmol/L (98-107); CREATININE, SERUM 1.44 mg/dL (0.55-1.02); GLOMERULAR FILTRATION RATE,EST 40 mL/min (>60); MAGNESIUM 1.6 mg/dL (1.8-2.4); POTASSIUM 3.9 mmol/L (3.5-5.1); PROTEIN, TOTAL 6.9 g/dL (6.4-8.2); TSH, 3RD GENERATION 21.027 uIU/mL (0.358-3.740); UREA NITROGEN 13 mg/dL (7-18)
[2024-06-16] MEDS ORDERED: MAGNESIUM SULFATE 2 GM/50 ML BAG IV ONE (19:00)
[2024-06-16] MEDS ORDERED: CYCLOBENZAPRINE HCL 10 MG TAB PO ONE (19:15)
[2024-06-16] MEDS ORDERED: ONDANSETRON 4 MG HOME.PACK SL ONE (19:45)
[2024-06-16 20:30] VITALS: BP 114/97
--- NOTE | 2024-06-18 11:27 | EKG ---
[facility] [address] [facility] [place] [address] Signed Normal sinus rhythm Cannot rule out Inferior infarct , age undetermined Abnormal ECG When compared with ECG of 08-SEP-2022 15:02, Nonspecific T wave abnormality now evident in Anterolateral leads Confirmed by KELSEY MENDEZ MD ([id number]) on 06/18/2024 11:27:31 AM Electronically Signed By: KELSEY MENDEZ 06/18/24 1127 PATIENT NAME: LORENA SHEA JESUS Electrocardiogram DATE OF : 57 PHYSICIAN: KELSEY MENDEZ REPORT #: [id number] REPORT IS CONFIDENTIAL AND NOT TO BE RELEASED WITHOUT AUTHORIZATION
== END 2024-06-16 21:00 | disposition home or self-care (01) ==
LOC: ED 17:19
PROVIDERS: Family Medicine
DX: E86.0 Dehydration (principal); E83.42 Hypomagnesemia; E06.9 Thyroiditis, unspecified; E11.9 Type 2 diabetes mellitus without complications; F17.200 Nicotine dependence, unspecified, uncomplicated; Z88.0 Allergy status to penicillin; Z88.8 Allergy status to other drugs, medicaments and biological substances; Z79.890 Hormone replacement therapy; Z79.899 Other long term (current) drug therapy; Z79.84 Long term (current) use of oral hypoglycemic drugs
CPT/HCPCS: 36415; 70450; 80053; 80307; 81001; 82010; 82140; 82803; 83735; 84439; 84443; 85025; 85610; 93005; 93010; 96361; 96365; 99285-25; A9270; G0480; J3475; J7121

== ENCOUNTER 2024-10-31 14:22 | Emergency (ER) | payer MEDICARE, OTHER ==
[~2024-10-31] VITALS: Ht 157.5 cm; Wt 66.0 kg
[2024-10-31] MEDS ORDERED: OMEPRAZOLE40 MG PO (14:49)
[2024-10-31] MEDS ORDERED: FLUTICASONE PRO16 GM NAS (14:50)
[2024-10-31] MEDS ORDERED: LEVOTHYROXINE50 MCG PO (14:50)
[2024-10-31 17:43] VITALS: BP 120/81
== END 2024-10-31 17:43 | disposition home or self-care (01) ==
LOC: ED 14:22
DX: M25.561 Pain in right knee (principal); E11.9 Type 2 diabetes mellitus without complications; E03.9 Hypothyroidism, unspecified; F17.200 Nicotine dependence, unspecified, uncomplicated; Z88.6 Allergy status to analgesic agent; Z88.0 Allergy status to penicillin; Z79.890 Hormone replacement therapy; Z79.84 Long term (current) use of oral hypoglycemic drugs; Z79.899 Other long term (current) drug therapy
CPT/HCPCS: 73560; 99283

== ENCOUNTER 2025-01-12 13:43 | Emergency (ER) | payer MEDICARE, OTHER ==
[~2025-01-12] VITALS: Ht 157.5 cm; Wt 66.7 kg
[2025-01-12] MEDS ORDERED: HYDROCODONE/ACETA 5/325 TAB PO ONE (16:45)
[2025-01-12 16:50] VITALS: BP 115/75
== END 2025-01-12 16:51 | disposition home or self-care (01) ==
LOC: ED 13:43
DX: S32.591A Other specified fracture of right pubis, initial encounter for closed fracture (principal); X58.XXXA Exposure to other specified factors, initial encounter; E11.9 Type 2 diabetes mellitus without complications; E03.9 Hypothyroidism, unspecified; F17.200 Nicotine dependence, unspecified, uncomplicated; Z88.6 Allergy status to analgesic agent; Z88.0 Allergy status to penicillin; Z88.8 Allergy status to other drugs, medicaments and biological substances; Z79.890 Hormone replacement therapy
CPT/HCPCS: 72192; 99283-25

== ENCOUNTER 2025-03-17 10:17 | Emergency (ER) | payer MEDICARE, OTHER ==
[~2025-03-17] VITALS: Ht 157.5 cm; Wt 67.1 kg
[~2025-03-17 10:17] MED LIST changes: +FLUTICASONE PRO16 GM NAS; +HYDROCODON-ACE1 EA10 PO; +LEVOTHYROXINE50 MCG PO; +OMEPRAZOLE40 MG PO
[2025-03-17 10:34] LABS: BILIRUBIN, URINE NEGATIVE (negative); BLOOD/HGB, URINE MODERATE (Negative); KETONE, URINE TRACE (Negative); LEUK ESTERASE, URINE MODERATE (negative); NITRITE, URINE POSITIVE (negative)
[2025-03-17 10:43] LABS: EPITHELIAL CELLS, URINE SQUAMOUS 1+ /lpf (0-1+)
[2025-03-17 10:44] LABS: BACTERIA, URINE 2+ /hpf (negative); CASTS, URINE NONE SEEN \\lpf; COLLECTION TYPE, URINE CLEAN CATCH; CRYSTALS, URINE NONE SEEN (0-1+); REFLEX CULTURE, URINE Yes (No); WHITE BLOOD CELLS, URINE >50 /HPF (0-5)
[2025-03-17] MEDS ORDERED: BACTRIM DS TAB1 EACH PO (11:12)
[2025-03-17] MEDS ORDERED: PHENAZOPYRIDINE HCL 100 MG TAB PO ONE (11:15)
[2025-03-17] MEDS ORDERED: TRIMETHOPRIM/SULFAMETHOXAZOLE 1 EA TAB PO ONE (11:15)
[2025-03-17 11:21] VITALS: BP 8/64
== END 2025-03-17 11:22 | disposition home or self-care (01) ==
LOC: ED 10:17
PROVIDERS: Emergency Medicine
DX: N39.0 Urinary tract infection, site not specified (principal); E11.9 Type 2 diabetes mellitus without complications; E03.9 Hypothyroidism, unspecified; F17.200 Nicotine dependence, unspecified, uncomplicated; Z79.51 Long term (current) use of inhaled steroids; Z79.84 Long term (current) use of oral hypoglycemic drugs; Z79.899 Other long term (current) drug therapy; Z88.6 Allergy status to analgesic agent; Z88.0 Allergy status to penicillin
CPT/HCPCS: 81001; 87077; 87088; 87186; 99283; A9270

== ENCOUNTER 2025-03-19 14:51 | Emergency (ER) | payer MEDICARE, OTHER ==
[~2025-03-19] VITALS: Ht 157.5 cm; Wt 58.4 kg
[~2025-03-19 14:51] MED LIST changes: +BACTRIM DS TAB1 EACH PO
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
[2025-03-19] MEDS ORDERED: VENTOLIN HFA18 GM (15:09)
[2025-03-19 15:24] LABS: BASOPHILS 1.1 % (0-2); EOSINOPHILS 5.8 % (0-6); HEMATOCRIT 30.2 % (35.0-50.0); HEMOGLOBIN 10.7 g/dL (12.0-18.0); MCH 33.2 (27-36); MCHC 35.4 g/dl (30-36); MCV 93.7 fl (81-99); MONOCYTES 11.5 % (0-12); NEUTROPHILS 39.6 % (39-80); PLATELET COUNT 253 K/uL (140-440); RBC 3.22 M/ul (4.3-5.7); RDW 12.9 (10.5-15.0)
[2025-03-19] MEDS ORDERED: ondansetron HCL 4 MG/2 ML VIAL IV ONE (15:30)
[2025-03-19] MEDS ORDERED: ACETAMINOPHEN 500 MG TAB PO ONE (15:30)
[2025-03-19] MEDS ORDERED: LORazepam 2 MG/ML VIAL IV ONE (15:30)
[2025-03-19 15:33] LABS: ALBUMIN 3.5 g/dL (3.4-5.0); ALBUMIN/GLOBULIN RATIO 1.06 (1.1-2.4); ANION GAP 12.9 (7-21); BILIRUBIN, TOTAL 0.7 mg/dL (0.2-1.0); BUN/CREATININE RATIO 12.4 (6.0-28.6); CALCIUM 8.7 mg/dL (8.5-10.1); CREATININE, SERUM 1.29 mg/dL (0.55-1.02); MAGNESIUM 1.7 mg/dL (1.8-2.4); POTASSIUM 3.9 mmol/L (3.5-5.1); PROTEIN, TOTAL 6.8 g/dL (6.4-8.2)
[2025-03-19] MEDS ORDERED: ATIVAN0.5 MG PO (16:47)
[2025-03-19] MEDS ORDERED: ONDANSETRON ODT4 MG PO (16:47)
[2025-03-19 17:26] VITALS: BP 99/55
== END 2025-03-19 17:26 | disposition home or self-care (01) ==
LOC: ED 14:51
PROVIDERS: Emergency Medicine
DX: N39.0 Urinary tract infection, site not specified (principal); R25.1 Tremor, unspecified; E11.9 Type 2 diabetes mellitus without complications; E03.9 Hypothyroidism, unspecified; F17.200 Nicotine dependence, unspecified, uncomplicated; Z79.84 Long term (current) use of oral hypoglycemic drugs; Z79.899 Other long term (current) drug therapy; Z88.6 Allergy status to analgesic agent; Z88.0 Allergy status to penicillin
CPT/HCPCS: 36415; 80053; 83735; 85025; 96374; 96375; 99284-25; A9270; J2060; J2405

== ENCOUNTER 2025-07-28 08:51 | Observation (INO) | payer MEDICARE, OTHER ==
[~2025-07-28] VITALS: Ht 157.5 cm; Wt 69.1 kg
[~2025-07-28 08:51] MED LIST changes: +ATIVAN0.5 MG PO; +ONDANSETRON ODT4 MG PO; +VENTOLIN HFA18 GM INH
[2025-07-28] MEDS ORDERED: LEVOTHYROXINE75 MCG PO (09:07)
[2025-07-28 09:09] LABS: BASOPHILS 0.3 % (0.1-1.2); EOSINOPHILS 1.1 % (0.7-5.8); LYMPHOCYTES 24.7 % (19.3-51.7); MCH 31.8 PG (25.6-32.2); MCHC 34.6 g/dL (32.2-35.5); MCV 91.8 fL (79.4-94.8); MONOCYTES 11.3 % (4.7-12.5); NEUTROPHILS 62.4 % (34.0-71.1); RBC 3.68 M/uL (3.93-5.22)
[2025-07-28] MEDS ORDERED: LIDOCAINE & ANTACID 35 ML BTL PO ONE (09:15)
[2025-07-28] MEDS ORDERED: HYDROmorphone HCL 1 MG/ML SYR IV PRN ×2 (09:15→11:45)
[2025-07-28 09:29] LABS: ALT (SGPT) 12.0 U/L (14-59); AST (SGOT) 17.0 U/L (15-37); GLOMERULAR FILTRATION RATE,EST 48.0 mL/min (>60); PROTEIN, TOTAL 7.6 g/dL (6.4-8.2); UREA NITROGEN 24.0 mg/dL (7-18)
[2025-07-28] MEDS ORDERED: DICYCLOMINE HCL 20 MG/2 ML VIAL IM ONE (10:45)
[2025-07-28] MEDS ORDERED: SODIUM CHLORIDE 0.9% 1,000 ML IV SCH (11:00)
[2025-07-28] MEDS ORDERED: SODIUM CHLORIDE 0.9% 500 ML IV PRN (11:00)
[2025-07-28] MEDS ORDERED: CIPROFLOXACIN/DEXTROSE 400 MG/200 ML PIGGYBACK IV ONE (12:45)
[2025-07-28] MEDS ORDERED: PANTOPRAZOLE SODIUM 40 MG/10 ML VIAL IV ONE (12:45)
[2025-07-28] MEDS ORDERED: DEXTROSE 5% - NACL 0.45% 1,000 ML IV SCH (13:45)
[2025-07-28] MEDS ORDERED: Insulin Regular, Human 100 UNIT/ML ML SUB-Q SCH (14:00)
[2025-07-28] MEDS ORDERED: IBLOOD GLUCOSE TEST STRIP 1 EA TEST VI SCH (14:00)
[2025-07-28 14:22] VITALS: BP 116/73
--- NOTE | 2025-07-28 14:26 | NUR ---
PT ARRIVES TO MED-[facility] AT 1414 ESCORTED BY KLARISSA SEXTON FROM ER VIA [facility]. VERBAL REPROT RECEIVED FROM KLARISSA SEXTON. PT IS AWAKE AND ALERT. VSS. VISITOR X1, FRIEND-LISA, AT BED SIDE. PT DENIES PAIN OR NAUSEA AT THIS TIME.
--- NOTE | 2025-07-28 14:43 | NUR ---
VERBAL REPORT PROVIDED TO DELMIS RN AND NARCISA CYR.
[2025-07-28] MEDS ORDERED: GABAPENTIN300 MG PO (16:07)
[2025-07-28] MEDS ORDERED: ONDANSETRON ODT4 MG PO (16:08)
--- NOTE | 2025-07-28 16:36 | NUR ---
ADMISSION ASSESSMENT COMPLETED. PATIENT UP IN BED AWAKE WITH FAMILY IN THE ROOM. NO REQUESTS AT THIS TIME. CALL LIGHT IN REACH.
[2025-07-28 17:13] LABS: BLOOD/HGB, URINE MODERATE (Negative); KETONE, URINE SMALL (Negative); LEUK ESTERASE, URINE TRACE (negative); NITRITE, URINE NEGATIVE (negative)
[2025-07-28 17:19] LABS: BACTERIA, URINE RARE /hpf (negative); CASTS, URINE GRANULAR 1+ \\lpf; CRYSTALS, URINE NONE SEEN (0-1+); REFLEX CULTURE, URINE Yes (No)
[2025-07-28 18:08] VITALS: BP 114/61
--- NOTE | 2025-07-28 18:11 | NUR ---
PATIENT IN BED WATCHING TV AT THIS TIME. VITALS AND I&O'S DONE AND CHARTED. CALL LIGHT IN REACH. NO FURTHER NEEDS AT THIS TIME.
[2025-07-28 18:24] VITALS: BP 114/61
--- NOTE | 2025-07-28 18:53 | NUR ---
PT AWAKE IN BED WATCHING TV. DENIES NEEDS. CALL LIGHT IN REACH
--- NOTE | 2025-07-28 19:25 | NUR ---
REPORT RECEIVED FROM DAY SHIFT RN. PT LYING IN BED ALERT AND ORIENTED. DENIES NEEDS. WHITE BOARD UPDATED. CALL LIGHT IN REACH. BED ALARM FOR SAFETY.
[2025-07-28 19:49] VITALS: BP 100/63
--- NOTE | 2025-07-28 20:13 | NUR ---
EVENING ASSESSMENT COMPLETE. BLOOD SUGAR WNL. SLIDING SCALE INSULIN HELD. PT DENIES PAIN OR NAUSEA. BOWEL TONES HYPOACTIVE. PT NPO. ORAL CARE SUPPLIES PROVIDED. IVF INFUSING WNL. PT DENIES QUESTIONS OR CONCNERNS. CALL LIGHT IN REACH.
[2025-07-28] MEDS ORDERED: CIPROFLOXACIN/DEXTROSE 400 MG/200 ML PIGGYBACK IV SCH (21:00)
[2025-07-28] MEDS ORDERED: INSULIN GLARGINE-YFGN 100 UNIT/ML ML SUB-Q SCH (21:00)
--- NOTE | 2025-07-28 21:43 | NUR ---
MD ON FLOOR. PROVIDED UPDATE REGARDING BLOOD SUGAR. LONG ACTING INSULIN HELD PER MD. IV ABX INFUSING PER ORDER. PT REPORTS 07/07 ABD PAIN. PRN FOR PAIN ADMIN PER EMAR. NO FURTHER NEEDS. CALL LIGHT IN REACH. BED ALARM FOR SAFETY.
--- NOTE | 2025-07-28 23:35 | NUR ---
PT REPORTS ABD PAIN 08/07. PRN FOR PAIN ADMIN PER EMAR. WARM COMPRESS PROVIDED. NO FURTHER NEEDS.
[2025-07-29] VITALS (9 sets, daily range): BP systolic 96–135; BP diastolic 56–73
--- NOTE | 2025-07-29 02:07 | NUR ---
PT AWAKE IN BED. SBA TO BR TO VOID 100 ML CONCENTRATED URINE. BACK TO BED, NIMCO WELL. VS AND I&O OBTAINED. PT DENIES PAIN AND NAUSEA AT THIS TIME. WARM BLANKET PROVIDED. NO FURTHER NEEDS. BED ALARM FOR SAFETY.
--- NOTE | 2025-07-29 03:22 | NUR ---
PT RESTING IN BED WITH EYES CLOSED. RESPIRATIONS EVEN. CALL LIGHT IN REACH. BED ALARM FOR SAFETY.
[2025-07-29 05:30] LABS: BASOPHILS 0.5 % (0.1-1.2); EOSINOPHILS 3.9 % (0.7-5.8); LYMPHOCYTES 18.2 % (19.3-51.7); MCH 31.3 PG (25.6-32.2); MCHC 33.2 g/dL (32.2-35.5); MCV 94.1 fL (79.4-94.8); MONOCYTES 10.7 % (4.7-12.5); NEUTROPHILS 66.2 % (34.0-71.1); RBC 2.72 M/uL (3.93-5.22)
[2025-07-29 05:39] LABS: GLOMERULAR FILTRATION RATE,EST 65.0 mL/min (>60); UREA NITROGEN 16.0 mg/dL (7-18)
--- NOTE | 2025-07-29 06:05 | NUR ---
VS AND I&O OBTAINED. PT REPORTS HEADACHE PAIN /10. PRN FOR PAIN ADMIN PER EMAR. WARM COMPRESS PROVIDED FOR RUQ PAIN. NO FURTHER NEEDS. CALL LIGHT IN REACH.
--- NOTE | 2025-07-29 06:29 | NUR ---
UPDATED ON LOW URINE OUTPUT. NEW TELEPHONE ORDERS RECEIVED VERIFIED WITH READBACK METHOD.
[2025-07-29] MEDS ORDERED: LACTATED RINGER'S 500 ML IV ONE (06:30)
--- NOTE | 2025-07-29 07:15 | NUR ---
VERBAL REPORT RECEIVED FROM KLARISSA BARBOZA. KLARISSA BARBOZA. PT RESTS IN BED AWAKE AND ALERT, WATCHES TV, CALL LIGHT IN REACH, NO REQUESTS AT THIS TIME.
--- NOTE | 2025-07-29 07:23 | EKG ---
[facility] [address] [place], [place] [address] Signed Normal sinus rhythm Cannot rule out Inferior infarct (cited on or before 16-JUN-2024) T wave abnormality, consider lateral ischemia Abnormal ECG When compared with ECG of 16-JUN-2024 18:24, No significant change was found Confirmed by KELSEY MENDEZ MD ([id number]) on 07/29/2025 7:23:39 AM Electronically Signed By: KELSEY MENDEZ 07/29/25 0723 PATIENT NAME: LORENA SHEA Electrocardiogram DATE OF : 57 PHYSICIAN: KELSEY MENDEZ REPORT #: [id number] REPORT IS CONFIDENTIAL AND NOT TO BE RELEASED WITHOUT AUTHORIZATION
--- NOTE | 2025-07-29 09:50 | NUR ---
HOURLY ROUNDING. PATIENT REPORTS FEELING GOOD, NOT IN PAIN. NO REQUEST FROM [facility] AT THIS TIME, CALL LIGHT HAS BEEN PLACED WITHIN REACH
[2025-07-29] MEDS ORDERED: B-121000 MC2 PO (11:37)
--- NOTE | 2025-07-29 11:39 | NUR ---
medications reconciled using pharmacy records and patient interview
--- NOTE | 2025-07-29 11:49 | NUR ---
PT RECEIVES DILAUDID FOR HEADACHE, SEE EMAR. ICE WATER, JELLO AND CHICKEN BROTH PROVIDED.
[2025-07-29] MEDS ORDERED: PHARMACY RENAL DOSE ADJUSTMENT 1 DOSE MISC PO SCH (12:00)
--- NOTE | 2025-07-29 12:37 | NUR ---
PATIENT REPORTS EATING A SMALL AMOUNT OF JELLO, FELT DIZZY FROM PAIN MEDICATIONS. PATIENT REPORTS NAUSEA AND GIVEN 4MG OF IV ZOFRAN.
--- NOTE | 2025-07-29 13:41 | NUR ---
PATIENT BP IS SOFT, 500ML NS PRN BOLUS IS INFUSING AT THIS TIME.
[2025-07-29] MEDS ORDERED: HYDROCODONE/ACETA 5/325 TAB PO PRN (14:00)
--- NOTE | 2025-07-29 15:32 | NUR ---
IS PROVIDED TO PT, EDUCATION ON USE OF IS PROVIDED. PT RETURN DEMONSTRATES USE OF IS. PT UP TO RECLINER. CALL LIGHT IN REACH, VISITOR X1 IN ROOM. SPO2 96% ON RA.
--- NOTE | 2025-07-29 16:55 | NUR ---
HOURLY ROUNDING.PATIENT LAYING IN BED, SONIS AT BEDSIDE, ALARMS HAS BEEN TURNED ON. CALL LIGHT HAS BEEN PLACED WITHIN REACH
--- NOTE | 2025-07-29 19:32 | NUR ---
REPORT RECEIVED FROM DAY SHIFT RN. PT LYING IN BED ALERT AND ORIENTED. DENIES NEEDS. WHITE BOARD UPDATED. CALL LIGHT IN REACH.
[2025-07-29] MEDS ORDERED: ALBUTEROL SULFATE 0.083% 3 ML VIAL INH PRN (20:15)
--- NOTE | 2025-07-29 20:23 | NUR ---
EVENING ASSESSMENT COMPLETE. SCHEDULED MEDS ADMIN PER EMAR. PT REPORTS ABD/HEADACHE PAIN 5/10. PRN FOR PAIN ADMIN PER EMAR. PT DENIES NAUSEA. ABD SOFT. BOWEL TONES ACTIVE. PT REPORTS FLATUS. PT REPORTS SOB. EXPIRATORY WHEEZE AUSCULTATED. RT NOTIFIED FOR PRN NEB. PT DENIES QUESTIONS OR CONCERNS. CALL LIGHT IN REACH. BED ALARM FOR SAFETY.
[2025-07-29] MEDS ORDERED: Insulin Regular, Human 100 UNIT/ML ML SUB-Q SCH (21:00)
[2025-07-29] MEDS ORDERED: IBLOOD GLUCOSE TEST STRIP 1 EA TEST VI SCH ×2 (21:00)
--- NOTE | 2025-07-29 21:45 | NUR ---
SBA PATIENT CALLED TO USE THE BATHROOM. PATIENT IS BACK IN BED. NO OTHER NEEDS AT THIS TIME. BED ALARM ON FOR SAFETY. CALL LIGHT AND SIDE TABLE WITHIN REACH.
--- NOTE | 2025-07-29 22:14 | NUR ---
PT RESTING IN BED WITH EYES CLOSED. AWAKENS EASILY. REPORTS SLIGHT NAUSEA. DENIES PRN FOR N/V WHEN OFFERED. NO NEEDS. CALL LIGHT IN REACH.
--- NOTE | 2025-07-29 23:20 | NUR ---
PATIENT UP TO THE BATHROOM SBA TO VOID 200ML CLEAR YELLOW URINE. PATIENT DID ORAL CARE. PATIENT IS BACK IN BED. ALARM ON FOR SAFETY. NO OTHER NEEDS AT THIS TIME. CALL LIGHT AND SIDE TABLE WITHIN REACH.
[2025-07-30] VITALS (9 sets, daily range): BP systolic 122–137; BP diastolic 68–76
--- NOTE | 2025-07-30 03:14 | NUR ---
CALL LIGHT ANSWERED. PT UP TO BR TO VOID WITH MINIMAL SBA. BACK TO BED, NIMCO WELL. DENIES PAIN OR NAUSEA. DENIES SOB. BOWEL TONES ACTIVE. ABD SOFT. NO FURTHER NEEDS. CALL LIGHT IN REACH.
--- NOTE | 2025-07-30 05:02 | NUR ---
CALL LIGHT ANSWERED. PT UP TO BR WITH MINIMAL SBA TO VOID 400 ML CLEAR YELLOW URINE. BACK TO BED. GAIT STEADY. PT DENIES PAIN OR NAUSEA. FRESH WATER AND ICE CHIPS PROVIDED. LAB IN FOR MORNING DRAW. NO FURTHER NEEDS. CALL LIGHT IN REACH.
[2025-07-30 05:10] LABS: BASOPHILS 0.3 % (0.1-1.2); EOSINOPHILS 7.9 % (0.7-5.8); LYMPHOCYTES 32.0 % (19.3-51.7); MCH 31.2 PG (25.6-32.2); MCHC 33.1 g/dL (32.2-35.5); MCV 94.4 fL (79.4-94.8); MONOCYTES 8.2 % (4.7-12.5); NEUTROPHILS 51.6 % (34.0-71.1); RBC 2.66 M/uL (3.93-5.22)
[2025-07-30 05:20] LABS: GLOMERULAR FILTRATION RATE,EST 78.0 mL/min (>60); UREA NITROGEN 5.0 mg/dL (7-18)
--- NOTE | 2025-07-30 07:34 | NUR ---
MORNING REPORT RECIEVED FROM KLARISSA BARBOZA PT LAYING IN BED AWAKE AND ALERT, PT DENIES ANY NEEDS AT THIS TIME. PT DENEIS NAUSEA AND PAIN AND HAS CALL LIGHT IN REACH. MD MENDEZ SPOKE WITH THIS RN AND GAVE VERBAL ORDER TO CHANGE TO FULL LIX DIET, ORDER INPUT AND KITCHEN CONTACTED TO CHANGE BREAKFAST ORDER.
--- NOTE | 2025-07-30 07:48 | NUR ---
RESPONDED TO PATIENT CALL LIGHT TO ASSIST TO RESTROOM. PATIENT VOIDED 350ML PALE YELLOW URINE. PATIENT RETURNED TO BED. DENIES ANY NEEDS AT THIS TIME.
--- NOTE | 2025-07-30 10:12 | NUR ---
UR CLINICAL REVIEW: 2 MN FOR VERSALUS-PER ROOMS DIRECTOR MEETS OBS FOR ABD PAIN WITH NEED FOR CSCOPE,PAIN MANAGEMENT AND MOITORING OBS 07/28/25 @ 0829. DISCUSSED EXTENDED OBS TIME WITH MD. MD PLAN TO DC THIS AFTERNOON IF DIET IS TOLERATED NO AUTH REQUIRED PER MEDICARE GUIDELINES DISCHARGE TO HOME WHEN MEDICALLY STABLE
--- NOTE | 2025-07-30 10:50 | NUR ---
PT RESTING IN BED, ALERT AND AWAKE. BLIND OPEN AND LIGHTS AND TV ON. GOT PT CUP OF ICE. PICKED UP ROOM AND TOOK OUT TRASH. CALL LIGHT WITHIN PT REACH. PT USED THE RESTROOM BEFORE I LEFT THE ROOM. PT REPORTED NEEDING NOTHING MORE AT THIS TIME.
--- NOTE | 2025-07-30 11:19 | NUR ---
PT WAS INDEPENDENT WHEN WALKING INTO RESTROOM. STAND [place] ASSIST, TO HELP MOVE IV STAND. PARTIALLY CHANGED BED LINENS, PT COMPLETED ORAL CARE AND CLEANED HERSELF IN THE [place] AREA TO PUT ON HER PERSONAL UNDERWEAR. PT REFUSED ANOTHER SHOWER, SHE STATED SHE HAD ONE YESTERDAY, BUT WE CHANGED HER GOWN AND STATED SHE PUT ON HER CLEAN UNDERWEAR. PT ALSO CLEANSED FACE AND ARMS. GOT PT FRESH HEAT PACK, REQUESTED, FOR HER STOMACH, PLACED IT IN A PILLOW CASE FOR COMFORT. CALL LIGHT WITHIN REACH, TRASH REMOVED AND ROOM CLEANED. PT REPORTED NEEDING NOTHING MORE AT THIS TIME. PT WATCHING TV, LAYING IN BED WITH HEAT PACK ON STOMACH.
--- NOTE | 2025-07-30 11:58 | NUR ---
PT SITTING UP IN BED AT THIS TIME, PT DENIES ANY CURRENT NEEDS AT THIS TIME AND HAS CALL LIGHT IN REACH CURRENTLY IF NEEDED.
[2025-07-30] MEDS ORDERED: POTASSIUM CHLORIDE 10 MEQ TABCR PO ONE (12:15)
--- NOTE | 2025-07-30 12:43 | NUR ---
PT SITTING UP IN BED, PT GIVEN PO POTASSIUM, PT STATES " THEY FEEL ODD" THIS RN ASKED MORE ABOUT HOW PT WAS FEELING, PT STATED " THEIR STOMACH FELT FUNNY BUT WASENT IN PAIN". PT SOFT NON DISTENDED, ACTIVE BOWEL TONES. PT HAS NO OTHER CONCERNS CALL LIGHT IN REACH.
[2025-07-30] MEDS ORDERED: FAMOTIDINE 20 MG TAB PO SCH (12:52)
[2025-07-30] MEDS ORDERED: LIDOCAINE & ANTACID 35 ML BTL PO ONE (13:00)
--- NOTE | 2025-07-30 13:40 | NUR ---
PT MOVED FROM CHAIR INTO BED, PT TOLERATED WELL AND DENIES PAIN AT THIS TIME, PT HAS CALL LIGHT IN REACH IF NEEDED.
[2025-07-30 14:14] LABS: BASOPHILS 0.7 % (0.1-1.2); EOSINOPHILS 7.2 % (0.7-5.8); LYMPHOCYTES 38.3 % (19.3-51.7); MCH 31.1 PG (25.6-32.2); MCHC 33.2 g/dL (32.2-35.5); MCV 93.7 fL (79.4-94.8); MONOCYTES 9.7 % (4.7-12.5); NEUTROPHILS 44.1 % (34.0-71.1); RBC 2.70 M/uL (3.93-5.22)
[2025-07-30 14:21] LABS: GLOMERULAR FILTRATION RATE,EST 85.0 mL/min (>60); UREA NITROGEN 4.0 mg/dL (7-18)
--- NOTE | 2025-07-30 14:39 | NUR ---
PT SITTING UP IN BED, PT HAS NO PAIN AND DENIES NAUSEA AND HAS NO PAIN AT THIS TIME, PT HAS CALL LIGHT IN REACH IF NEEDED. PT STATES " SHE FEELS FINE, THEN FEELS TERRIBLE". PT HAS NO CURRENT NEEDS AT THIS TIME.
--- NOTE | 2025-07-30 15:47 | NUR ---
PT SITTING UP IN BED, PT DENIES PAIN OR ANY CURRENT NEEDS, PT HAS CALL LIGHT IN REACH IF NEEDED.
--- NOTE | 2025-07-30 16:45 | NUR ---
Spoke with Kita. She states she is back with her "stomach issues". She cont. to live with her dog and a roommate in a 1 story home with 1 step. She denies issues getting in or out of her home. She has two walkers, but seldom uses. She plans to dc to home in the next day or so. Roommate will drive her. She denies financial or safety issues.
--- NOTE | 2025-07-30 17:39 | NUR ---
PT SITTING UP IN BED, PT DENIES NAUSEA, PT HAS LITTLE TO NO PAIN AT THIS TIME IN THE ABD AREA AND HAS CALL LIGHT IN REACH IF NEEDED.
--- NOTE | 2025-07-30 18:01 | NUR ---
PT SITTING UP IN BED, PT DID NOT LIKE DINNER AND WAS GIVEN A SANDWICH BOX, PT WAS GREATFUL AND HAD NO OTHER CURRENT NEEDS, PT HAS FAMILY IN ROOM AND CALL LIGHT IN REACH.
--- NOTE | 2025-07-30 18:30 | NUR ---
PT IS RESTING IN BED WITH HEAD UP AND A VISITOR IN THE ROOM. PT REPORTS THE DINNER SERVED WAS TOO SPICY, PT'S RN BROUGHT IN A SANDWICH, PT EAT A LITTLE, COUPLE BITES, AND ALL OF THE APPLESAUCE CUP. PT SAID SHE DID EAT A FEW OF THE GREEN BEANS TOO FROM DINNER. CALL LIGHT WITHIN REACH. PT REPORTS NO PAIN CURRENTLY. I GOT PT A FRESH CUP OF ICE REQUESTED. PT REPORTED NEEDING NOTHING MORE AT THIS TIME.
--- NOTE | 2025-07-30 19:44 | NUR ---
REPORT RECEIVED FROM DAY SHIFT RN. PT LYING IN BED ALERT AND ORIENTED. SBA TO BR TO VOID. GAIT STEADY. BACK TO BED, NIMCO WELL. NO FURTHER NEEDS. WHITE BOARD UPDATED. CALL LIGHT IN REACH.
--- NOTE | 2025-07-30 20:41 | NUR ---
call light answered, pt up sba to void, pt voided 300mls straw colored. pt back in bed, call light in reach along with personal belongings.
[2025-07-30] MEDS ORDERED: CIPROFLOXACIN 500 MG TAB PO SCH (21:00)
--- NOTE | 2025-07-30 21:09 | NUR ---
EVENING ASSESSMENT COMPLETE. PHONED TO CHANGE IV ABX TO PO. NEW TELEPHONE ORDERS RECEIVED VERIFIED WITH READBACK METHOD. PT DENIES PAIN OR NAUSEA. REPORTS FLATUS. ABD SOFT. BOWEL TONES ACTIVE. PT MANNY QUESTIONS OR CONCERNS. CALL LIGHT IN REACH.
--- NOTE | 2025-07-30 23:18 | NUR ---
CPOX ALARMING. SpO2 82% WITH VAPOTHERM OUT OF PT NOSE. CANULA REPLACED. SpO2 LOW 90'S. PUDDING PROVIDED PER REQUEST. NO FURTHER NEEDS. BED ALARM FOR SAFETY.
--- NOTE | 2025-07-30 23:24 | NUR ---
PT RESTING IN BED WITH EYES CLOSED. RESPIRATIONS EVEN. CALL LIGHT IN REACH.
--- NOTE | 2025-07-31 01:26 | NUR ---
CALL LIGHT ANSWERED. PT UP TO BR WITH TO VOID AND HAVE LARGE SOFT BM. BACK TO BED, NIMCO WELL. DENIES PAIN OR NAUSEA. NO FURTHER NEEDS.
--- NOTE | 2025-07-31 03:54 | NUR ---
PT RESTING IN BED WITH EYES CLOSED. RESPIRATIONS EVEN. CALL LIGHT IN REACH.
[2025-07-31 05:30] VITALS: BP 131/69
--- NOTE | 2025-07-31 06:08 | NUR ---
PT UP TO BR TO VOID AND HAVE SMALL BM. GAIT STEADY. BACK TO BED, NIMCO WELL. DENIES PAIN OR NAUSEA. BREAKFAST ORDERED. NO FURTHER NEEDS. CALL LIGHT IN REACH.
[2025-07-31 06:09] VITALS: BP 131/69
[2025-07-31 06:27] LABS: BASOPHILS 1.1 % (0.1-1.2); EOSINOPHILS 9.5 % (0.7-5.8); LYMPHOCYTES 44.2 % (19.3-51.7); MCH 31.1 PG (25.6-32.2); MCHC 33.7 g/dL (32.2-35.5); MCV 92.3 fL (79.4-94.8); MONOCYTES 10.6 % (4.7-12.5); NEUTROPHILS 34.6 % (34.0-71.1); RBC 2.99 M/uL (3.93-5.22)
[2025-07-31 06:36] LABS: GLOMERULAR FILTRATION RATE,EST 73.0 mL/min (>60); UREA NITROGEN 4.0 mg/dL (7-18)
[2025-07-31] MEDS ORDERED: SODIUM CHLORIDE 1 GM TAB PO ONE (07:15)
--- NOTE | 2025-07-31 07:26 | NUR ---
MORNING REPORT RECIEVED FROM KLARISSA BARBOZA. PT SITTING UP IN BED AWAKE AND ALERT, PT HAS NO CONCERNS AT THIS TIME AND DENIES PAIN. PT HAS CALL LIGHT IN REACH.
--- NOTE | 2025-07-31 07:35 | NUR ---
PATIENT GIVEN PO SODIUM TABLET.
--- NOTE | 2025-07-31 09:21 | NUR ---
HOURLY ROUNDING. PATIENT RANG CALL LIGHT TO HAVE ASSISTANCE GOING TO THE BATHROOM. HOT TOWEL WAS GIVEN, AM CARE COMPLETED. TIDY ROOM, BOARD HAS BEEN UPDATED NO REQUEST FROM PATIENT AT THIS TIME
[2025-07-31 09:34] VITALS: BP 137/74
[2025-07-31 10:00] VITALS: BP 137/74
[2025-07-31 10:24] LABS: GLOMERULAR FILTRATION RATE,EST 78.0 mL/min (>60); UREA NITROGEN 4.0 mg/dL (7-18)
--- NOTE | 2025-07-31 10:36 | NUR ---
PT SITTING UP IN BED, PT UPDATED ON POC AND PT AGREEABLE, PT HAS NO PAIN OR DISCOMFORT AT THIS TIME AND HAS CALL LIGHT IN REACH.
--- NOTE | 2025-07-31 11:10 | NUR ---
SPOKE WITH PATIENT. SHE IS PLANNING ON GOING HOME TODAY. NO CM NEEDS.
--- NOTE | 2025-07-31 11:18 | NUR ---
PT NOT AVAILABLE FOR VISIT. PROVIDED PRAYER.
--- NOTE | 2025-07-31 11:19 | NUR ---
PT SITTING UP IN BED, PT HAS NO COMPLAINTS CURRENTLY, PT DENIES PAIN, AND NAUSEA. PT IS CURRENTLY TRYING TO CONTACT THEIR FRIEND FOR A RIDE ONCE DC'D. PT HAS CALL LIGHT IN REACH AT THIS TIME.
--- NOTE | 2025-07-31 11:28 | NUR ---
HOURLY ROUNDIG. PATIENT MENTIONED WANTING TO GE DRESSED, I LAID OUT HER CLOTHES, WHILE SHE USED THE RESTROOM. PATIENT REPORTS BEING READY TO GO HOME, ADL'S HAVE BEEN COMPLTED AND CALL LIGHT HAS BEEN PLACED WITHIN REACH
[2025-07-31] MEDS ORDERED: POTASSIUM CHLORIDE 10 MEQ TABCR PO ONE (12:30)
[2025-07-31 12:41] VITALS: BP 146/76
--- NOTE | 2025-07-31 12:42 | NUR ---
HOURLY ROUNDING. PATIENT IS SITTING UP IN BED, LOIDA ENSURE WAS GIVEN TO REPLACE THE LUNCH SHE DIDNT EAT
--- NOTE | 2025-07-31 12:48 | NUR ---
PT SITTING UP IN BED, PT DENIES NEEDS AT THIS TIME AND STATES " THEIR RIDE WILL BE HERE BETWEEN 1500 AND 1530" PT HAS CALL LIGHT IN REACH.
--- NOTE | 2025-07-31 13:49 | NUR ---
PT SITTING UP IN BED, PT DENIES PAIN AND HAS NO CURRENT NEEDS, PT VITALS STABLE AND CALL LIGHT IN REACH AT THIS TIME.
[2025-07-31 14:00] VITALS: BP 146/76
[2025-07-31 14:21] LABS: GLOMERULAR FILTRATION RATE,EST 83.0 mL/min (>60); UREA NITROGEN 5.0 mg/dL (7-18)
[2025-07-31] MEDS ORDERED: METRONIDAZOLE250 MG PO (14:45)
[2025-07-31] MEDS ORDERED: CIPROFLOXACIN500 MG PO (14:45)
[2025-07-31] MEDS ORDERED: SODIUM CHLORI1000 M2 PO (14:48)
--- NOTE | 2025-07-31 14:52 | NUR ---
PT IS DRESSED AND READY TO BE DC'D PT RIDE IS CURRENTLY ON THEIR WAY AND PT HAS NO OTHER CONCERNS CUURRENTLY.
== END 2025-07-31 15:15 | disposition home or self-care (01) ==
LOC: ED 08:51 → MS 08:52 → ED 11:46 → MS 11:46
PROVIDERS: Emergency Medicine; ADMIT Internal Medicine; ATTEND Internal Medicine
DX: K57.32 Diverticulitis of large intestine without perforation or abscess without bleeding (principal); E11.9 Type 2 diabetes mellitus without complications; J44.9 Chronic obstructive pulmonary disease, unspecified; E87.1 Hypo-osmolality and hyponatremia; N17.9 Acute kidney failure, unspecified; K20.90 Esophagitis, unspecified without bleeding; K80.50 Calculus of bile duct without cholangitis or cholecystitis without obstruction; E03.9 Hypothyroidism, unspecified; F17.200 Nicotine dependence, unspecified, uncomplicated; Z85.3 Personal history of malignant neoplasm of breast; Z79.84 Long term (current) use of oral hypoglycemic drugs; Z79.890 Hormone replacement therapy; Z79.899 Other long term (current) drug therapy; Z88.0 Allergy status to penicillin; Z88.8 Allergy status to other drugs, medicaments and biological substances
CPT/HCPCS: 36415; 71045; 74177; 76705; 80048; 80053; 81001; 82247; 82248; 83036; 83690; 83735; 84484; 85025; 87088; 93005; 93010; 94640; 96361; 96365; 96366; 96368; 96372; 96374; 96375; 96376; 99285-25; A9270; G0378; J0500; J0744; J1171; J2405; J2470; J7030; J7040; J7042; J7121; Q9967